=== PATIENT | male | born 1970 | race Caucasian/White ===

== ENCOUNTER 2016-07-06 12:25 | Emergency (ER) | payer OTHER ==
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
[2016-07-06 15:06] VITALS: BP 145/101
== END 2016-07-06 13:40 | disposition home or self-care (01) ==
LOC: JD.ED 12:25
DX: T20.40XA Corrosion of unspecified degree of head, face, and neck, unspecified site, initial encounter (principal); E78.00 Pure hypercholesterolemia, unspecified; I10 Essential (primary) hypertension; F41.9 Anxiety disorder, unspecified; E11.9 Type 2 diabetes mellitus without complications; F17.210 Nicotine dependence, cigarettes, uncomplicated; Z79.899 Other long term (current) drug therapy
CPT/HCPCS: 99282; 99283

== ENCOUNTER 2017-09-22 16:58 | Emergency (ER) | payer OTHER ==
[2017-09-22 17:09] VITALS: BP 157/86
[2017-09-22] MEDS ORDERED: Sodium Chloride 0.9% 1,000 ML IV SCH ×2 (17:15→18:30)
--- NOTE | 2017-09-22 17:15 | EDM.PDOC ---
<Zeeshan Roberts - Last Filed: 09/22/17 20:31> ED HPI GENERAL MEDICAL PROBLEM - General Chief Complaint: Diabetic Complaint Stated Complaint: 474 BLOOD SUGAR LEVEL Time Seen by Provider: 09/22/17 17:10 - Related Data Allergies Allergy/AdvReac Type Severity Reaction Status Date / Time No Known Allergies Allergy Verified 10/30/15 17:43 Home Meds: Home Meds metFORMIN HCl [Metformin HCl] 1,000 mg PO BID 06/15/15 [History] Escitalopram [Lexapro] 20 mg PO DAILY 10/30/15 [History] Insulin Glargine,Hum.Rec.Anlog [Toujeo Solostar] 20 unit INJECT DAILY 09/22/17 [ History] Insulin Lispro [Humalog] 0 unit INJECT ASDIRECTED 09/22/17 [History] Course - Vital Signs Last Recorded V/S: Last Vital Signs Temp 37.0 C 09/22/17 17:08 Pulse 96 09/22/17 17:08 Resp 20 09/22/17 17:08 BP 157/86 H 09/22/17 17:08 Pulse Ox 99 09/22/17 17:08 - Orders/Labs/Meds Labs: Laboratory Tests 09/22/17 09/22/17 09/22/17 Range/Units 17:10 17:10 17:10 WBC 11.17 H (4.23-9.07) K/mm3 RBC 5.12 (4.63-6.08) M/mm3 Hgb 15.2 (13.7-17.5) gm/L Hct 43.9 (40.1-51.0) % MCV 85.7 (79.0-92.2) fl MCH 29.7 (25.7-32.2) pg MCHC 34.6 (32.2-35.5) g/dl RDW Std Deviation 40.0 (35.1-43.9) fL Plt Count 262 (163-337) K/mm3 MPV 9.8 (9.4-12.3) fl Neutrophils % (Manual) 53 (40-60) % Band Neutrophils % 0 (0-10) % Lymphocytes % (Manual) 40 (20-40) % Atypical Lymphs % 0 % Monocytes % (Manual) 4 (2-10) % Eosinophils % (Manual) 3 (0.8-7.0) % Basophils % (Manual) 0 L (0.2-1.2) Platelet Estimate Adequate Plt Morphology Comment Normal RBC Morph Comment Normal Sodium 132 L (136-145) mEq/L Potassium 3.8 (3.5-5.1) mEq/L Chloride 96 L (98-107) mEq/L Carbon Dioxide 25 (21-32) mEq/L Anion Gap 14.8 (5-15) BUN 20 H (7-18) mg/dL Creatinine 1.1 (0.7-1.3) mg/dL Est Cr Clr Drug Dosing 98.60 mL/min Estimated GFR (MDRD) > 60 (>60) mL/min BUN/Creatinine Ratio 18.2 H (14-18) Glucose 498 H (74-106) mg/dL POC Glucose (70-105) mg/dL Hemoglobin A1c (4.50-6.20) % Serum Osmolality 308 H (280-300) mosm/kg Lactic Acid Calcium 8.4 L (8.5-10.1) mg/dL Magnesium (1.8-2.4) mg/dl Total Bilirubin 0.2 (0.2-1.0) mg/dL AST 12 L (15-37) U/L ALT 33 (16-63) U/L Alkaline Phosphatase 187 H (46-116) U/L Troponin I < 0.017 (0.00-0.056) ng/mL C-Reactive Protein < 0.2 (<1.0) mg/dL Total Protein 6.8 (6.4-8.2) g/dl Albumin 3.4 (3.4-5.0) g/dl Globulin 3.4 gm/dL Albumin/Globulin Ratio 1.0 (1-2) Urine Color (Yellow) Urine Appearance (Clear) Urine pH (5.0-8.0) Ur Specific [place] (1.005-1.030) Urine Protein (Negative) Urine Glucose (UA) (Negative) Urine Ketones (Negative) Urine Occult Blood (Negative) Urine Nitrite (Negative) Urine Bilirubin (Negative) Urine Urobilinogen (0.2-1.0) Ur Leukocyte Esterase (Negative) Urine RBC (0-5) /hpf Urine WBC (0-5) /hpf Ur Epithelial Cells (0-5) /hpf Urine Bacteria (FEW) /hpf Urine Mucus (FEW) /hpf Ketones (0.0-0.3) mM 09/22/17 09/22/17 09/22/17 Range/Units 17:10 17:10 17:10 WBC (4.23-9.07) K/mm3 RBC (4.63-6.08) M/mm3 Hgb (13.7-17.5) gm/L Hct (40.1-51.0) % MCV (79.0-92.2) fl MCH (25.7-32.2) pg MCHC (32.2-35.5) g/dl RDW Std Deviation (35.1-43.9) fL Plt Count (163-337) K/mm3 MPV (9.4-12.3) fl Neutrophils % (Manual) (40-60) % Band Neutrophils % (0-10) % Lymphocytes % (Manual) (20-40) % Atypical Lymphs % % Monocytes % (Manual) (2-10) % Eosinophils % (Manual) (0.8-7.0) % Basophils % (Manual) (0.2-1.2) Platelet Estimate Plt Morphology Comment RBC Morph Comment Sodium (136-145) mEq/L Potassium (3.5-5.1) mEq/L Chloride (98-107) mEq/L Carbon Dioxide (21-32) mEq/L Anion Gap (5-15) BUN (7-18) mg/dL Creatinine (0.7-1.3) mg/dL Est Cr Clr Drug Dosing mL/min Estimated GFR (MDRD) (>60) mL/min BUN/Creatinine Ratio (14-18) Glucose (74-106) mg/dL POC Glucose (70-105) mg/dL Hemoglobin A1c 10.50 H (4.50-6.20) % Serum Osmolality (280-300) mosm/kg Lactic Acid Calcium (8.5-10.1) mg/dL Magnesium 1.8 (1.8-2.4) mg/dl Total Bilirubin (0.2-1.0) mg/dL AST (15-37) U/L ALT (16-63) U/L Alkaline Phosphatase (46-116) U/L Troponin I (0.00-0.056) ng/mL C-Reactive Protein (<1.0) mg/dL Total Protein (6.4-8.2) g/dl Albumin (3.4-5.0) g/dl Globulin gm/dL Albumin/Globulin Ratio (1-2) Urine Color (Yellow) Urine Appearance (Clear) Urine pH (5.0-8.0) Ur Specific [place] (1.005-1.030) Urine Protein (Negative) Urine Glucose (UA) (Negative) Urine Ketones (Negative) Urine Occult Blood (Negative) Urine Nitrite (Negative) Urine Bilirubin (Negative) Urine Urobilinogen (0.2-1.0) Ur Leukocyte Esterase (Negative) Urine RBC (0-5) /hpf Urine WBC (0-5) /hpf Ur Epithelial Cells (0-5) /hpf Urine Bacteria (FEW) /hpf Urine Mucus (FEW) /hpf Ketones 0.22 (0.0-0.3) mM 09/22/17 09/22/17 09/22/17 Range/Units 17:40 19:43 19:46 WBC (4.23-9.07) K/mm3 RBC (4.63-6.08) M/mm3 Hgb (13.7-17.5) gm/L Hct (40.1-51.0) % MCV (79.0-92.2) fl MCH (25.7-32.2) pg MCHC (32.2-35.5) g/dl RDW Std Deviation (35.1-43.9) fL Plt Count (163-337) K/mm3 MPV (9.4-12.3) fl Neutrophils % (Manual) (40-60) % Band Neutrophils % (0-10) % Lymphocytes % (Manual) (20-40) % Atypical Lymphs % % Monocytes % (Manual) (2-10) % Eosinophils % (Manual) (0.8-7.0) % Basophils % (Manual) (0.2-1.2) Platelet Estimate Plt Morphology Comment RBC Morph Comment Sodium (136-145) mEq/L Potassium (3.5-5.1) mEq/L Chloride (98-107) mEq/L Carbon Dioxide (21-32) mEq/L Anion Gap (5-15) BUN (7-18) mg/dL Creatinine (0.7-1.3) mg/dL Est Cr Clr Drug Dosing mL/min Estimated GFR (MDRD) (>60) mL/min BUN/Creatinine Ratio (14-18) Glucose (74-106) mg/dL POC Glucose 88 (70-105) mg/dL Hemoglobin A1c (4.50-6.20) % Serum Osmolality (280-300) mosm/kg Lactic Acid TNP Calcium (8.5-10.1) mg/dL Magnesium (1.8-2.4) mg/dl Total Bilirubin (0.2-1.0) mg/dL AST (15-37) U/L ALT (16-63) U/L Alkaline Phosphatase (46-116) U/L Troponin I (0.00-0.056) ng/mL C-Reactive Protein (<1.0) mg/dL Total Protein (6.4-8.2) g/dl Albumin (3.4-5.0) g/dl Globulin gm/dL Albumin/Globulin Ratio (1-2) Urine Color Yellow (Yellow) Urine Appearance Clear (Clear) Urine pH 6.0 (5.0-8.0) Ur Specific [place] 1.025 (1.005-1.030) Urine Protein Negative (Negative) Urine Glucose (UA) 2+ H (Negative) Urine Ketones Negative (Negative) Urine Occult Blood Trace-lysed H (Negative) Urine Nitrite Negative (Negative) Urine Bilirubin Negative (Negative) Urine Urobilinogen 0.2 (0.2-1.0) Ur Leukocyte Esterase Negative (Negative) Urine RBC 0-5 (0-5) /hpf Urine WBC 0-5 (0-5) /hpf Ur Epithelial Cells 0-5 (0-5) /hpf Urine Bacteria Rare (FEW) /hpf Urine Mucus Not seen (FEW) /hpf Ketones (0.0-0.3) mM 09/22/17 09/22/17 Range/Units 19:48 20:21 WBC (4.23-9.07) K/mm3 RBC (4.63-6.08) M/mm3 Hgb (13.7-17.5) gm/L Hct (40.1-51.0) % MCV (79.0-92.2) fl MCH (25.7-32.2) pg MCHC (32.2-35.5) g/dl RDW Std Deviation (35.1-43.9) fL Plt Count (163-337) K/mm3 MPV (9.4-12.3) fl Neutrophils % (Manual) (40-60) % Band Neutrophils % (0-10) % Lymphocytes % (Manual) (20-40) % Atypical Lymphs % % Monocytes % (Manual) (2-10) % Eosinophils % (Manual) (0.8-7.0) % Basophils % (Manual) (0.2-1.2) Platelet Estimate Plt Morphology Comment RBC Morph Comment Sodium (136-145) mEq/L Potassium (3.5-5.1) mEq/L Chloride (98-107) mEq/L Carbon Dioxide (21-32) mEq/L Anion Gap (5-15) BUN (7-18) mg/dL Creatinine (0.7-1.3) mg/dL Est Cr Clr Drug Dosing mL/min Estimated GFR (MDRD) (>60) mL/min BUN/Creatinine Ratio (14-18) Glucose 117 H (74-106) mg/dL POC Glucose 129 H (70-105) mg/dL Hemoglobin A1c (4.50-6.20) % Serum Osmolality (280-300) mosm/kg Lactic Acid Calcium (8.5-10.1) mg/dL Magnesium (1.8-2.4) mg/dl Total Bilirubin (0.2-1.0) mg/dL AST (15-37) U/L ALT (16-63) U/L Alkaline Phosphatase (46-116) U/L Troponin I (0.00-0.056) ng/mL C-Reactive Protein (<1.0) mg/dL Total Protein (6.4-8.2) g/dl Albumin (3.4-5.0) g/dl Globulin gm/dL Albumin/Globulin Ratio (1-2) Urine Color (Yellow) Urine Appearance (Clear) Urine pH (5.0-8.0) Ur Specific [place] (1.005-1.030) Urine Protein (Negative) Urine Glucose (UA) (Negative) Urine Ketones (Negative) Urine Occult Blood (Negative) Urine Nitrite (Negative) Urine Bilirubin (Negative) Urine Urobilinogen (0.2-1.0) Ur Leukocyte Esterase (Negative) Urine RBC (0-5) /hpf Urine WBC (0-5) /hpf Ur Epithelial Cells (0-5) /hpf Urine Bacteria (FEW) /hpf Urine Mucus (FEW) /hpf Ketones (0.0-0.3) mM Meds: Medications Discontinued Medications Generic Name Dose Route Start Last Admin Trade Name [place] PRN Reason Stop Dose Admin Dextrose/Water Confirm 09/22/17 19:51 Dextrose 50% In Water Administered 09/22/17 19:52 Dose 50 ml .ROUTE .STK-MED ONE Sodium Chloride 1,000 mls @ 999 mls/hr 09/22/17 17:15 09/22/17 17:27 Normal Saline IV 999 mls/hr ASDIRECTED TAMEKA Administration Sodium Chloride 1,000 mls @ 500 mls/hr 09/22/17 18:30 09/22/17 18:38 Normal Saline IV 500 mls/hr ASDIRECTED TAMEKA Administration Insulin Human NPH 10 unit 09/23/17 18:24 Humulin N SUBCUT 09/23/17 18:25 ONETIME ONE Insulin Human Regular 10 unit 09/22/17 18:15 09/22/17 18:38 Humulin R IV 09/22/17 18:16 10 unit ONETIME ONE Administration - Re-Assessments/Exams Free Text/Narrative Re-Assessment/Exam: 09/22/17 20:34 Have assumed care from Dr Valiente at change of shift. I agree with his hx and exam as documented. repeat glucose after 10 units insulin IV over an hr ago was 88. We had him eat and than rechecked glucose, now 129. He feels much better. Discharge instr. as documented. Departure - Departure Disposition: Home, Self-Care 01 Clinical Impression: Hyperglycemia Uncontrolled type 2 diabetes mellitus Qualifiers: Diabetes mellitus long-term insulin use: with long-term use Diabetes mellitus complication status: with other specified complication Qualified Code(s): E11.69 - Type 2 diabetes mellitus with other specified complication; E11.65 - Type 2 diabetes mellitus with hyperglycemia; Z79.4 - longterm (current) use of insulin - Discharge Information Instructions: Type 2 Diabetes Mellitus, Diagnosis, Adult, Hyperglycemia, Easy- to-Read Referrals: Sharee Gregory, CHARGE ENTRY SPECIALIST [Primary Care Provider] - Forms: ED Department Discharge Additional Instructions: Evaluation in the emergency room today in regards to feeling ill secondary to uncontrolled type 2 diabetes. Sugars are running exceptionally high today and they have been running high per your history for over a week. This is produced some degree of dehydration but not as bad as I had initially anticipated. Blood sugar today was 500. You're therefore given a liter and a half of intravenous fluids while in the ED. You were given 10 units of insulin intravenously and a longer acting insulin called NPH subcutaneously. Overall we need to increase your Toujeo dose to 30 units once daily since your glycosylated protein is 10.5. You should take this dosage once daily every morning. You should see an improvement in your blood sugars over the next 3-5 days follow-up with your primary care provider on Saturday as planned. Copies of your labs will be provided to you to give to her. <Darrell Valiente - Last Filed: 09/25/17 13:24> ED HPI GENERAL MEDICAL PROBLEM - General Source of Information: Reports: Patient, Family History Limitations: Reports: No Limitations - History of Present Illness INITIAL COMMENTS - FREE TEXT/NARRATIVE: 47-year-old male presents the ED with uncontrolled type 2 diabetes. Sugars of been running high for several days and today they were as high as 575. He is supposed to be following a diabetic diet. He is supposed to be taking metformin. So also using Humalog intermittently rapid acting or regular insulin and Toujeo once daily. Complains of diffuse headache blurred vision shortness of breath weakness upper and left sided abdominal pain. Nausea but no vomiting. Increased urinary frequency and severe polydipsia. Patient apparently has been type II diabetic 4-5 years. Onset: Gradual, Unknown/Unsure (There is been running high for at least 5 days if not longer.) Duration: Day(s):, Getting Worse Location: Reports: Generalized (Generalized sense of illness with headache dry mouth urinary increased urinary frequency elevated blood sugars) Quality: Reports: Other (Diffuse headache) Severity: Moderate (discomfort with throbbing pain) Improves with: Reports: None Worsens with: Reports: None Context: Reports: Other (Type II diabetic uncontrolled.). Denies: Activity, Exercise, Lifting, Sick Contact, Trauma Associated Symptoms: Reports: Cough (Smoker's cough not very often productive of any sputum), Headaches, Malaise, Nausea/Vomiting (On exertion), Shortness of Breath, Weakness ( nausea without vomiting generalized weakness. ). 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 Her liters blood sugars 575.) Headache Pain Score (Numeric/FACES): 8 Past Medical History Cardiovascular History: Reports: High Cholesterol, Hypertension Musculoskeletal History: Reports: Back Pain, Chronic Psychiatric History: Reports: Anxiety Endocrine/Metabolic History: Reports: Diabetes, Type II (4-5 years.) Social & Family History - Tobacco Use Smoking Status *Q: Current Every Day Smoker Tobacco Use Within Last Twelve Months: Cigarettes (Pack per day) - Caffeine Use Caffeine Use: Reports: Coffee, Soda, Tea ED ROS GENERAL - Review of Systems Review Of Systems: See Below Constitutional: Reports: Fever, Malaise (Feels warm to palpation.), Weakness, Fatigue, Decreased Appetite, Other (He's not sure if he's lost weight.). Denies : Chills HEENT: Reports: Other (Mouth and tongue are extremely dry.) Respiratory: Reports: Shortness of Breath, Cough. Denies: Wheezing, Pleuritic Chest Pain (On minimal exertion) Cardiovascular: Reports: Blood Pressure Problem, Dyspnea on Exertion, Lightheadedness, Palpitations (Sometimes). Denies: Chest Pain (Nonproductive. Of note patient is a smoker a pack per day.), Claudication, Edema, Orthopnea ( Mild hypertension) Endocrine: Reports: Fatigue, High Glucose GI/Abdominal: Reports: Abdominal Pain (Left karly-abdominal discomfort.), Decreased Appetite, Nausea, Other (2 bowel movements today.). Denies: Constipation, Diarrhea : Reports: Frequency (Marked polyuria.) Musculoskeletal: Reports: Muscle Pain Skin: Reports: No Symptoms Neurological: Reports: Confusion, Dizziness, Headache, Difficulty Walking, Weakness. Denies: Numbness, Tingling, Tremors (Due to being weak.), Trouble Speaking, Change in Speech, Gait Disturbance Psychiatric: Reports: Anxiety Hematologic/Lymphatic: Reports: No Symptoms Immunologic: Reports: No Symptoms ED EXAM GENERAL NO PERIP PULSE - Physical Exam Exam: See Below Exam Limited By: No Limitations General Appearance: Alert, WD/WN, Anxious, Mild Distress, Other (Very red in the bases of the sunburn. He does feel warm to palpation but the rest of his body does not feel hot.) Eye Exam: Bilateral Eye: Normal Inspection Throat/Mouth: Other (Tongue is extremely dry and coated. No oropharyngeal infection although it is mildly erythematous I believe from cigarette smoking.) Head: Atraumatic, Normocephalic Neck: Normal Inspection, Supple, Non-Tender, Full Range of Motion. No: Carotid Bruit, Lymphadenopathy (L), Lymphadenopathy (R) Respiratory/Chest: Lungs Clear, Normal Breath Sounds (Mild tachypnea at rest 20- 22/m.), No Accessory Muscle Use, Chest Non-Tender, Respiratory Distress. No: Rales, Rhonchi, Wheezing Cardiovascular: Normal Peripheral Pulses, Regular Rate, Rhythm, No Edema, No Gallop, No Murmur, No Rub GI/Abdominal: Normal Bowel Sounds, No Mass, Pelvis Stable, Tender (Tender to palpation left upper quadrant left mid abdomen. No palpable masses.). No: No Abnormal Bruit, Guarding ( No guarding or rebound tenderness.), Rigid, Rebound Back Exam: Normal Inspection, Full Range of Motion. No: CVA Tenderness (L), CVA Tenderness (R) Extremities: Normal Inspection, Normal Range of Motion, Non-Tender, No Pedal Edema Neurological: Alert, Oriented, CN II-XII Intact, Normal Cognition Psychiatric: Normal Affect, Normal Mood Skin Exam: Warm, Dry, Intact, No Rash, Other (Face is flushed and erythematous like a sunburn.) EKG INTERPRETATION EKG Date: 09/22/17 Time: 17:27 Rhythm: NSR Rate (Beats/Min): 88 Williams: Normal P-Wave: Present QRS: Wide (incomplete right bundle branch block) ST-T: Normal QT: Normal EKG Interpretation Comments: Abnormal ECG. Course - Orders/Labs/Meds Labs: Laboratory Tests 09/22/17 09/22/17 09/22/17 Range/Units 17:10 17:10 17:10 WBC 11.17 H (4.23-9.07) K/mm3 RBC 5.12 (4.63-6.08) M/mm3 Hgb 15.2 (13.7-17.5) gm/L Hct 43.9 (40.1-51.0) % MCV 85.7 (79.0-92.2) fl MCH 29.7 (25.7-32.2) pg MCHC 34.6 (32.2-35.5) g/dl RDW Std Deviation 40.0 (35.1-43.9) fL Plt Count 262 (163-337) K/mm3 MPV 9.8 (9.4-12.3) fl Neutrophils % (Manual) 53 (40-60) % Band Neutrophils % 0 (0-10) % Lymphocytes % (Manual) 40 (20-40) % Atypical Lymphs % 0 % Monocytes % (Manual) 4 (2-10) % Eosinophils % (Manual) 3 (0.8-7.0) % Basophils % (Manual) 0 L (0.2-1.2) Platelet Estimate Adequate Plt Morphology Comment Normal RBC Morph Comment Normal Sodium 132 L (136-145) mEq/L Potassium 3.8 (3.5-5.1) mEq/L Chloride 96 L (98-107) mEq/L Carbon Dioxide 25 (21-32) mEq/L Anion Gap 14.8 (5-15) BUN 20 H (7-18) mg/dL Creatinine 1.1 (0.7-1.3) mg/dL Est Cr Clr Drug Dosing 98.60 mL/min Estimated GFR (MDRD) > 60 (>60) mL/min BUN/Creatinine Ratio 18.2 H (14-18) Glucose 498 H (74-106) mg/dL POC Glucose (70-105) mg/dL Hemoglobin A1c (4.50-6.20) % Serum Osmolality 308 H (280-300) mosm/kg Lactic Acid Calcium 8.4 L (8.5-10.1) mg/dL Magnesium (1.8-2.4) mg/dl Total Bilirubin 0.2 (0.2-1.0) mg/dL AST 12 L (15-37) U/L ALT 33 (16-63) U/L Alkaline Phosphatase 187 H (46-116) U/L Troponin I < 0.017 (0.00-0.056) ng/mL C-Reactive Protein < 0.2 (<1.0) mg/dL Total Protein 6.8 (6.4-8.2) g/dl Albumin 3.4 (3.4-5.0) g/dl Globulin 3.4 gm/dL Albumin/Globulin Ratio 1.0 (1-2) Urine Color (Yellow) Urine Appearance (Clear) Urine pH (5.0-8.0) Ur Specific [place] (1.005-1.030) Urine Protein (Negative) Urine Glucose (UA) (Negative) Urine Ketones (Negative) Urine Occult Blood (Negative) Urine Nitrite (Negative) Urine Bilirubin (Negative) Urine Urobilinogen (0.2-1.0) Ur Leukocyte Esterase (Negative) Urine RBC (0-5) /hpf Urine WBC (0-5) /hpf Ur Epithelial Cells (0-5) /hpf Urine Bacteria (FEW) /hpf Urine Mucus (FEW) /hpf Ketones (0.0-0.3) mM 09/22/17 09/22/17 09/22/17 Range/Units 17:10 17:10 17:10 WBC (4.23-9.07) K/mm3 RBC (4.63-6.08) M/mm3 Hgb (13.7-17.5) gm/L Hct (40.1-51.0) % MCV (79.0-92.2) fl MCH (25.7-32.2) pg MCHC (32.2-35.5) g/dl RDW Std Deviation (35.1-43.9) fL Plt Count (163-337) K/mm3 MPV (9.4-12.3) fl Neutrophils % (Manual) (40-60) % Band Neutrophils % (0-10) % Lymphocytes % (Manual) (20-40) % Atypical Lymphs % % Monocytes % (Manual) (2-10) % Eosinophils % (Manual) (0.8-7.0) % Basophils % (Manual) (0.2-1.2) Platelet Estimate Plt Morphology Comment RBC Morph Comment Sodium (136-145) mEq/L Potassium (3.5-5.1) mEq/L Chloride (98-107) mEq/L Carbon Dioxide (21-32) mEq/L Anion Gap (5-15) BUN (7-18) mg/dL Creatinine (0.7-1.3) mg/dL Est Cr Clr Drug Dosing mL/min Estimated GFR (MDRD) (>60) mL/min BUN/Creatinine Ratio (14-18) Glucose (74-106) mg/dL POC Glucose (70-105) mg/dL Hemoglobin A1c 10.50 H (4.50-6.20) % Serum Osmolality (280-300) mosm/kg Lactic Acid Calcium (8.5-10.1) mg/dL Magnesium 1.8 (1.8-2.4) mg/dl Total Bilirubin (0.2-1.0) mg/dL AST (15-37) U/L ALT (16-63) U/L Alkaline Phosphatase (46-116) U/L Troponin I (0.00-0.056) ng/mL C-Reactive Protein (<1.0) mg/dL Total Protein (6.4-8.2) g/dl Albumin (3.4-5.0) g/dl Globulin gm/dL Albumin/Globulin Ratio (1-2) Urine Color (Yellow) Urine Appearance (Clear) Urine pH (5.0-8.0) Ur Specific [place] (1.005-1.030) Urine Protein (Negative) Urine Glucose (UA) (Negative) Urine Ketones (Negative) Urine Occult Blood (Negative) Urine Nitrite (Negative) Urine Bilirubin (Negative) Urine Urobilinogen (0.2-1.0) Ur Leukocyte Esterase (Negative) Urine RBC (0-5) /hpf Urine WBC (0-5) /hpf Ur Epithelial Cells (0-5) /hpf Urine Bacteria (FEW) /hpf Urine Mucus (FEW) /hpf Ketones 0.22 (0.0-0.3) mM 09/22/17 09/22/17 09/22/17 Range/Units 17:40 19:43 19:46 WBC (4.23-9.07) K/mm3 RBC (4.63-6.08) M/mm3 Hgb (13.7-17.5) gm/L Hct (40.1-51.0) % MCV (79.0-92.2) fl MCH (25.7-32.2) pg MCHC (32.2-35.5) g/dl RDW Std Deviation (35.1-43.9) fL Plt Count (163-337) K/mm3 MPV (9.4-12.3) fl Neutrophils % (Manual) (40-60) % Band Neutrophils % (0-10) % Lymphocytes % (Manual) (20-40) % Atypical Lymphs % % Monocytes % (Manual) (2-10) % Eosinophils % (Manual) (0.8-7.0) % Basophils % (Manual) (0.2-1.2) Platelet Estimate Plt Morphology Comment RBC Morph Comment Sodium (136-145) mEq/L Potassium (3.5-5.1) mEq/L Chloride (98-107) mEq/L Carbon Dioxide (21-32) mEq/L Anion Gap (5-15) BUN (7-18) mg/dL Creatinine (0.7-1.3) mg/dL Est Cr Clr Drug Dosing mL/min Estimated GFR (MDRD) (>60) mL/min BUN/Creatinine Ratio (14-18) Glucose (74-106) mg/dL POC Glucose 88 (70-105) mg/dL Hemoglobin A1c (4.50-6.20) % Serum Osmolality (280-300) mosm/kg Lactic Acid TNP Calcium (8.5-10.1) mg/dL Magnesium (1.8-2.4) mg/dl Total Bilirubin (0.2-1.0) mg/dL AST (15-37) U/L ALT (16-63) U/L Alkaline Phosphatase (46-116) U/L Troponin I (0.00-0.056) ng/mL C-Reactive Protein (<1.0) mg/dL Total Protein (6.4-8.2) g/dl Albumin (3.4-5.0) g/dl Globulin gm/dL Albumin/Globulin Ratio (1-2) Urine Color Yellow (Yellow) Urine Appearance Clear (Clear) Urine pH 6.0 (5.0-8.0) Ur Specific [place] 1.025 (1.005-1.030) Urine Protein Negative (Negative) Urine Glucose (UA) 2+ H (Negative) Urine Ketones Negative (Negative) Urine Occult Blood Trace-lysed H (Negative) Urine Nitrite Negative (Negative) Urine Bilirubin Negative (Negative) Urine Urobilinogen 0.2 (0.2-1.0) Ur Leukocyte Esterase Negative (Negative) Urine RBC 0-5 (0-5) /hpf Urine WBC 0-5 (0-5) /hpf Ur Epithelial Cells 0-5 (0-5) /hpf Urine Bacteria Rare (FEW) /hpf Urine Mucus Not seen (FEW) /hpf Ketones (0.0-0.3) mM 09/22/17 09/22/17 Range/Units 19:48 20:21 WBC (4.23-9.07) K/mm3 RBC (4.63-6.08) M/mm3 Hgb (13.7-17.5) gm/L Hct (40.1-51.0) % MCV (79.0-92.2) fl MCH (25.7-32.2) pg MCHC (32.2-35.5) g/dl RDW Std Deviation (35.1-43.9) fL Plt Count (163-337) K/mm3 MPV (9.4-12.3) fl Neutrophils % (Manual) (40-60) % Band Neutrophils % (0-10) % Lymphocytes % (Manual) (20-40) % Atypical Lymphs % % Monocytes % (Manual) (2-10) % Eosinophils % (Manual) (0.8-7.0) % Basophils % (Manual) (0.2-1.2) Platelet Estimate Plt Morphology Comment RBC Morph Comment Sodium (136-145) mEq/L Potassium (3.5-5.1) mEq/L Chloride (98-107) mEq/L Carbon Dioxide (21-32) mEq/L Anion Gap (5-15) BUN (7-18) mg/dL Creatinine (0.7-1.3) mg/dL Est Cr Clr Drug Dosing mL/min Estimated GFR (MDRD) (>60) mL/min BUN/Creatinine Ratio (14-18) Glucose 117 H (74-106) mg/dL POC Glucose 129 H (70-105) mg/dL Hemoglobin A1c (4.50-6.20) % Serum Osmolality (280-300) mosm/kg Lactic Acid Calcium (8.5-10.1) mg/dL Magnesium (1.8-2.4) mg/dl Total Bilirubin (0.2-1.0) mg/dL AST (15-37) U/L ALT (16-63) U/L Alkaline Phosphatase (46-116) U/L Troponin I (0.00-0.056) ng/mL C-Reactive Protein (<1.0) mg/dL Total Protein (6.4-8.2) g/dl Albumin (3.4-5.0) g/dl Globulin gm/dL Albumin/Globulin Ratio (1-2) Urine Color (Yellow) Urine Appearance (Clear) Urine pH (5.0-8.0) Ur Specific [place] (1.005-1.030) Urine Protein (Negative) Urine Glucose (UA) (Negative) Urine Ketones (Negative) Urine Occult Blood (Negative) Urine Nitrite (Negative) Urine Bilirubin (Negative) Urine Urobilinogen (0.2-1.0) Ur Leukocyte Esterase (Negative) Urine RBC (0-5) /hpf Urine WBC (0-5) /hpf Ur Epithelial Cells (0-5) /hpf Urine Bacteria (FEW) /hpf Urine Mucus (FEW) /hpf Ketones (0.0-0.3) mM Meds: Medications Discontinued Medications Generic Name Dose Route Start Last Admin Trade Name Amanq PRN Reason Stop Dose Admin Dextrose/Water Confirm 09/22/17 19:51 Dextrose 50% In Water Administered 09/22/17 19:52 Dose 50 ml .ROUTE .STK-MED ONE Sodium Chloride 1,000 mls @ 999 mls/hr 09/22/17 17:15 09/22/17 17:27 Normal Saline IV 999 mls/hr ASDIRECTED TAMEKA Administration Sodium Chloride 1,000 mls @ 500 mls/hr 09/22/17 18:30 09/22/17 18:38 Normal Saline IV 500 mls/hr ASDIRECTED TAMEKA Administration Insulin Human NPH 10 unit 09/23/17 18:24 Humulin N SUBCUT 09/23/17 18:25 ONETIME ONE Insulin Human Regular 10 unit 09/22/17 18:15 09/22/17 18:38 Humulin R IV 09/22/17 18:16 10 unit ONETIME ONE Administration - Radiology Interpretation Free Text/Narrative:: 47-year-old male presents to the ED essentially with uncontrolled type 2 diabetes for probably greater than 5 days. Blood sugars of been running high on his monitor which is greater than 500. Sugar today earlier was 474. He took 5 units of Humalog insulin and then his sugar an hour later was 575. Feeling weak and lightheaded dizzy and headachy generalized myalgia has polyuria and poly- .dipsia. He does has some diffuse left-sided karly-abdominal discomfort on examination but no peritoneal signs. I will have blood cultures done 2. IV will be normal saline at open. Will see how his sugars are not suspect he'll need an insulin infusion for a period of time. He appears to be significantly volume depleted. - Re-Assessments/Exams Free Text/Narrative Re-Assessment/Exam: 09/22/17 18:14 Labs are back. Total white count is 11.17 with 53% neutrophils and no bands reported. Hemoglobin is 15.2 with hematocrit of 43.9. Sodium is slightly low at 132. Potassium normal 3.8. Chloride 96 with a bicarbonate of 25. Anion gap is 14.8. BUN is 20 with a creatinine of 1.1. Glucose is elevated at 498. Hemoglobin A1c is 10.50. Serum osmolality is pending. Calcium is 8.4. Magnesium low normal at 1.8. Bilirubin normal at 0.2. Alk phosphatase mildly elevated at 187. Reason for this is unclear. Troponin I is less than 0.017. C- reactive protein is less than 0.2. Therefore there are no signs of infection. She is currently looking much improved after a liter of IV fluid. I will start a second liter of IV fluid as well. Plan will be given to give him 10 units of regular insulin Humalog IV bolus and 10 units of NPH insulin subcutaneously. Sugar should be checked in an hour. He needs an increase in his Toujeo doseage . He may be noncompliant with the medication however therefore I have some reservations. I will make appropriate adjustments and he is going to follow-up with his care provider in 5 days time. Departure - Departure Time of Disposition: 22:25 Condition: Fair - Discharge Information *PRESCRIPTION DRUG MONITORING PROGRAM REVIEWED*: Not Applicable *COPY OF PRESCRIPTION DRUG MONITORING REPORT IN PATIENT STANISLAV: Not Applicable
[2017-09-22] MEDS ORDERED: Insulin Regular, Human 100 Units/ML 3 ML Vial IV ONE (18:15)
[2017-09-22] MEDS ORDERED: 50% Dextrose in Water 50 ML Syringe ONE (19:51)
[2017-09-23] MEDS ORDERED: Insulin Isophane NPH, Human 100 Units/ML 10 ML Vial SUBCUT ONE (18:24)
== END 2017-09-22 21:00 | disposition home or self-care (01) ==
LOC: JD.ED 16:58
DX: E11.65 Type 2 diabetes mellitus with hyperglycemia (principal); I10 Essential (primary) hypertension; Z79.4 Long term (current) use of insulin; Z79.84 Long term (current) use of oral hypoglycemic drugs; F17.210 Nicotine dependence, cigarettes, uncomplicated
CPT/HCPCS: 36415; 80053; 81001; 82009; 82947; 82962; 83036; 83735; 83930; 84484; 85007; 85027; 86140; 87040; 93005; 96361; 96374; 99285; J1815; J7040; 93010; 99284-25

== ENCOUNTER 2018-05-06 13:07 | Emergency (ER) | payer BC ==
[2018-05-06] MEDS ORDERED: Lactated Ringers 1,000 ML IV ONE (14:19)
--- NOTE | 2018-05-06 14:22 | EDM.PDOC ---
ED HPI GENERAL MEDICAL PROBLEM - General Chief Complaint: Diabetic Complaint Stated Complaint: NOT FEELING GOOD AFTER TAKING NEW INSULANT Time Seen by Provider: 05/06/18 13:58 Source of Information: Reports: Patient, Family (), RN Notes Reviewed History Limitations: Reports: Physical Impairment (Fidgety - constantly in motion) - History of Present Illness INITIAL COMMENTS - FREE TEXT/NARRATIVE: The patient states that he has type 2 diabetes mellitus, on Toujeo for the past 3-4 years. He states that he was also previously on Humalog, but has not taken any for the past 3-4 months. He states that he usually checks his blood sugar 3 times a day, with a typical range of 380 to 600. He states that, due to a change in insurance, he was prescribed NovoLog, that he started taking this past 05/03/2018. He states that he is supposed to take 11 units of NovoLog 3 to 5 times a day, depending on his diet. He states that in fact, he is taking 11 units 3 times a day. Since starting NovoLog , he states that his blood sugars have been in the high 200s. The patient now presents, stating that he is chronically nauseated and constipated. He has both polydipsia and polyuria. No recent fever, chills, cough , chest pain, palpitations, dyspnea, vomiting, diarrhea, dysuria, flank pain, or rashes. The patient acknowledges that he eats a lot of candy and junk food, and drinks approximately 10 Diet Pepsi's per day. The patient's PCP is Sharee Gregory. The patient states that his diabetes is managed by a diabetic nurse in the clinic, whose name he does not recall. Lower Back Pain Score (Numeric/FACES): 5 - Related Data Allergies Allergy/AdvReac Type Severity Reaction Status Date / Time No Known Allergies Allergy Verified 01/19/18 09:40 Home Meds: Home Meds metFORMIN HCl [Metformin HCl] 1,000 mg PO BID 06/15/15 [History] Escitalopram [Lexapro] 20 mg PO DAILY 10/30/15 [History] Insulin Glargine,Hum.Rec.Anlog [Toujeo Solostar] 35 unit INJECT DAILY 09/22/17 [ History] LORazepam 1 tab PO DAILY PRN 05/06/18 [History] traZODone HCl [Trazodone HCl] 1 tab PO DAILY 05/06/18 [History] Past Medical History HEENT History: Reports: Other (See Below) Other HEENT History: deviated nasal spetum. Cardiovascular History: Reports: High Cholesterol (untreated), Hypertension ( untreated) Musculoskeletal History: Reports: Back Pain, Chronic, Fracture Psychiatric History: Reports: Anxiety, Depression Endocrine/Metabolic History: Reports: Diabetes, Type II, Obesity/BMI 30+ - Infectious Disease History Infectious Disease History: Reports: Chicken Pox - Past Surgical History HEENT Surgical History: Reports: Oral Surgery (wisdom teeth extracted) Social & Family History - Tobacco Use Smoking Status *Q: Current Some Day Smoker Years of Tobacco use: 32 Packs/Tins Daily: 2 - Caffeine Use Caffeine Use: Reports: Coffee, Soda - Alcohol Use Alcohol Use History: Yes Alcohol Use Frequency: Rarely - Recreational Drug Use Recreational Drug Use: Yes Drug Use in Last 12 Months: No Recreational Drug Type: Reports: Marijuana/Hashish (last smoked in 2016) - Living Situation & Occupation Living situation: Reports: Single, with Significant Other (Fiance), with Family (3 kids) Occupation: Employed ([employer]) ED ROS GENERAL - Review of Systems Review Of Systems: ROS reveals no pertinent complaints other than HPI. ED EXAM GENERAL NO PERIP PULSE - Physical Exam Exam: See Below Exam Limited By: No Limitations General Appearance: Alert, WD/WN, No Apparent Distress, Other (Fidgety - constantly in motion) Eye Exam: Bilateral Eye: EOMI, Normal Inspection Ears: Normal External Exam, Hearing Grossly Normal Nose: Normal Inspection Throat/Mouth: Normal Inspection, Normal Lips, Normal Voice, No Airway Compromise Head: Atraumatic, Normocephalic Neck: Normal Inspection, Full Range of Motion Respiratory/Chest: No Respiratory Distress, Lungs Clear, Normal Breath Sounds, No Accessory Muscle Use Cardiovascular: Normal Peripheral Pulses, No Edema, No Gallop, No JVD, No Murmur , No Rub, Tachycardia (regular) GI/Abdominal: Normal Bowel Sounds, Soft, Non-Tender, No Organomegaly, No Distention, No Abnormal Bruit, No Mass, Other (Obese) (Male) Exam: Deferred Rectal (Males) Exam: Deferred Back Exam: Normal Inspection, Full Range of Motion. No: CVA Tenderness (L), CVA Tenderness (R) Extremities: Normal Inspection, Normal Range of Motion, No Pedal Edema, Normal Capillary Refill Neurological: Alert, Oriented, Normal Cognition, No Motor/Sensory Deficits Psychiatric: Other (Fidgety - constantly in motion) Skin Exam: Warm, Dry, Intact, Normal Color, No Rash Course - Vital Signs Last Recorded V/S: Last Vital Signs Temp 36.8 C 05/06/18 16:19 Pulse 82 05/06/18 16:19 Resp 20 05/06/18 16:19 BP 144/95 H 05/06/18 16:19 Pulse Ox 97 05/06/18 16:19 Orthostatic Blood Pressure [ 163/79 Standing] Orthostatic Blood Pressure [ 162/101 Sitting] Orthostatic Blood Pressure [ 144/95 Supine] - Orders/Labs/Meds Labs: Laboratory Tests 05/06/18 05/06/18 05/06/18 Range/Units 13:21 13:47 13:47 WBC 10.32 H (4.23-9.07) K/mm3 RBC 5.08 (4.63-6.08) M/mm3 Hgb 14.6 (13.7-17.5) gm/L Hct 43.9 (40.1-51.0) % MCV 86.4 (79.0-92.2) fl MCH 28.7 (25.7-32.2) pg MCHC 33.3 (32.2-35.5) g/dl RDW Std Deviation 40.8 (35.1-43.9) fL Plt Count 289 (163-337) K/mm3 MPV 9.9 (9.4-12.3) fl Neutrophils % (Manual) 75 H (40-60) % Band Neutrophils % 1 (0-10) % Lymphocytes % (Manual) 22 (20-40) % Atypical Lymphs % 0 % Monocytes % (Manual) 2 (2-10) % Eosinophils % (Manual) 0 L (0.8-7.0) % Basophils % (Manual) 0 L (0.2-1.2) Platelet Estimate Adequate RBC Morph Comment Normal Sodium 135 L (136-145) mEq/L Potassium 3.8 (3.5-5.1) mEq/L Chloride 101 (98-107) mEq/L Carbon Dioxide 24 (21-32) mEq/L Anion Gap 13.8 (5-15) BUN 17 (7-18) mg/dL Creatinine 1.0 (0.7-1.3) mg/dL Est Cr Clr Drug Dosing 108.46 mL/min Estimated GFR (MDRD) > 60 (>60) mL/min BUN/Creatinine Ratio 17.0 (14-18) Glucose 404 H (74-106) mg/dL POC Glucose 394 H (70-105) mg/dL Calcium 9.2 (8.5-10.1) mg/dL Magnesium 1.8 (1.8-2.4) mg/dl Total Bilirubin 0.5 (0.2-1.0) mg/dL AST 21 (15-37) U/L ALT 26 (16-63) U/L Alkaline Phosphatase 134 H (46-116) U/L Total Protein 7.0 (6.4-8.2) g/dl Albumin 3.6 (3.4-5.0) g/dl Globulin 3.4 gm/dL Albumin/Globulin Ratio 1.1 (1-2) Meds: Medications Discontinued Medications Generic Name Dose Route Start Last Admin Trade Name Freq PRN Reason Stop Dose Admin Lactated Ringer's 1,000 mls @ 999 mls/hr 05/06/18 14:19 05/06/18 14:52 Ringers, Lactated IV 05/06/18 15:19 999 mls/hr .BOLUS ONE Administration - Re-Assessments/Exams Free Text/Narrative Re-Assessment/Exam: 05/06/18 14:19 The patient reports not feeling well after starting NovoLog 3 days ago. While he states that his Accu-Cheks have been in the high 200s since starting NovoLog , they are ordinarily between 380-600, therefore, while there has been some improvement, the patient is essentially having a hypoglycemic reaction. For today's purposes, I have ordered orthostatics, a CBC, CMP, and magnesium level, to make sure that the patient has not suffered any significant fluid or electrolyte abnormalities, but, in the meantime, the patient will receive 1 L of LR. 05/06/18 16:37 Notified that the patient is anxious to leave. Orthostatics, obtained after the patient received 1 L of LR, are positive. The patient's blood glucose returned significantly elevated at 404. The remainder of his workup is unremarkable. He is not acidotic.I recommended to the patient that he receive additional IV fluid , until his orthostatics are corrected, however, the patient refused. I would like the patient to follow-up with his diabetic nurse, with the recommendation that the amount of short-acting insulin that he is currently receiving be decreased, as he does not seem to tolerate even modest decreases in his blood glucose. Departure - Departure Time of Disposition: 16:38 Disposition: Home, Self-Care 01 Condition: Fair Clinical Impression: Hyperglycemia due to type 2 diabetes mellitus, Orthostasis - Discharge Information *PRESCRIPTION DRUG MONITORING PROGRAM REVIEWED*: Not Applicable *COPY OF PRESCRIPTION DRUG MONITORING REPORT IN PATIENT STANISLAV: Not Applicable Instructions: Hyperglycemia, [id number] Referrals: Sharee Gregory NP [Primary Care Provider] - Forms: ED Department Discharge Additional Instructions: You were seen in the emergency room for feeling poorly, after NovoLog was added to your usual Toujeo. Workup in the ER included blood work and positional blood pressure checks. Your blood sugar returned elevated at 404, and your blood pressure dropped excessively between lying and standing, indicating that you are intravascularly depleted. You received 1 L of IV fluid in the ER, but refused additional IV fluid that was recommended. Based on your history, physical examination, and ER test, you are feeling poorly because your body does not tolerate even modest decreases in your chronically elevated blood sugar. We recommend that you discuss this with your diabetic nurse, to see if a decreased dose of NovoLog might help to decrease your symptoms. In the meantime, we strongly recommend that you adhere to a diabetic diet. Stay adequately hydrated. If any other problems, please do not hesitate to return to the ER.
[2018-05-06 16:20] VITALS: BP 144/95
== END 2018-05-06 16:50 | disposition home or self-care (01) ==
LOC: JD.ED 13:07
DX: E11.65 Type 2 diabetes mellitus with hyperglycemia (principal); I95.1 Orthostatic hypotension; I10 Essential (primary) hypertension; E66.9 Obesity, unspecified; F41.9 Anxiety disorder, unspecified; F32.9 Major depressive disorder, single episode, unspecified; F17.210 Nicotine dependence, cigarettes, uncomplicated; Z79.4 Long term (current) use of insulin; Z79.899 Other long term (current) drug therapy
CPT/HCPCS: 36415; 80053; 82962; 83735; 85007; 85027; 96360; 99284; J7120

== ENCOUNTER 2018-08-26 14:57 | Emergency (ER) | payer SELFPAY ==
[2018-08-26 15:07] VITALS: BP 153/100
--- NOTE | 2018-08-26 15:23 | EDM.PDOC ---
ED HPI GENERAL MEDICAL PROBLEM - General Chief Complaint: Genitourinary Problem Stated Complaint: SORE TESTICLES FOR 2 WEEKS Time Seen by Provider: 08/26/18 15:18 Source of Information: Reports: Patient, Family (spouse) History Limitations: Reports: No Limitations - History of Present Illness INITIAL COMMENTS - FREE TEXT/NARRATIVE: 47-year-old male presents to the ED with his reporting bilateral testicular discomfort and pain for the better part of 2 weeks. Currently the right testicles hurting worse than the left. Associated problems passing her water with hesitancy and difficulty getting the urine to flow. Also mild burning and discomfort at times with passage of urine. No associated fever or chills. Patient is an insulin-dependent diabetic. Has pain in his groin bilaterally. No previous similar problems Onset: Gradual Onset Date: 08/12/18 Duration: Day(s):, Getting Worse Location: Reports: Abdomen (Some suprapubic pressure discomfort), Other ( Bilateral testicular pain worse in the right as compared to the left) Quality: Reports: Ache, Pressure, Throbbing Severity: Moderate Improves with: Reports: Rest (78 out of 10) Worsens with: Reports: Other (Worse with walking especially with clothing on.) Context: Reports: Other (Spontaneous occurrence about 2 weeks ago). 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 - Related Data Allergies Allergy/AdvReac Type Severity Reaction Status Date / Time No Known Allergies Allergy Verified 01/19/18 09:40 Home Meds: Home Meds metFORMIN HCl [Metformin HCl] 1,000 mg PO BID 06/15/15 [History] Escitalopram [Lexapro] 20 mg PO DAILY 10/30/15 [History] Insulin Glargine,Hum.Rec.Anlog [David Weller] 35 unit INJECT DAILY 09/22/17 [ History] traZODone HCl [Trazodone HCl] 1 tab PO DAILY 05/06/18 [History] Ciprofloxacin HCl [Cipro] 500 mg PO BID #24 tablet 08/26/18 [Rx] Doxycycline [Vibramycin] 100 mg PO BID #84 cap 08/26/18 [Rx] oxyCODONE HCl/Acetaminophen [Percocet 5-325 mg Tablet] 1 - 2 each PO Q4H PRN # 12 tablet 08/26/18 [Rx] Past Medical History HEENT History: Reports: Other (See Below) Other HEENT History: deviated nasal spetum. Cardiovascular History: Reports: High Cholesterol, Hypertension Other Cardiovascular History: not on medication as his insurance won't pay for it Respiratory History: Reports: None Gastrointestinal History: Reports: Other (See Below) Other Gastrointestinal History: chronic nausea. Genitourinary History: Reports: None Musculoskeletal History: Reports: Back Pain, Chronic, Fracture Neurological History: Reports: None Psychiatric History: Reports: Anxiety, Depression Endocrine/Metabolic History: Reports: Diabetes, Type II, Obesity/BMI 30+ Hematologic History: Reports: None Immunologic History: Reports: None Oncologic (Cancer) History: Reports: None Dermatologic History: Reports: None - Infectious Disease History Infectious Disease History: Reports: Chicken Pox - Past Surgical History Head Surgeries/Procedures: Reports: None HEENT Surgical History: Reports: Oral Surgery Social & Family History - Tobacco Use Smoking Status *Q: Current Every Day Smoker Years of Tobacco use: 30 Packs/Tins Daily: 1 - Caffeine Use Caffeine Use: Reports: Coffee, Soda - Recreational Drug Use Recreational Drug Use: No - Living Situation & Occupation Living situation: Reports: Single, with Significant Other (Fiance), with Family (3 kids) Occupation: Employed ([employer]) ED ROS GENERAL - Review of Systems Review Of Systems: See Below Constitutional: Reports: Decreased Appetite. Denies: Fever, Chills, Malaise, Weakness, Fatigue, Weight Loss HEENT: Reports: No Symptoms Respiratory: Reports: No Symptoms Cardiovascular: Reports: No Symptoms Endocrine: Reports: No Symptoms GI/Abdominal: Reports: Abdominal Pain (Some suprapubic pressure discomfort at times) : Reports: Other (Bilateral testicular pain and discomfort. Hesitancy and difficulty passing his urine with some dysuria at times.) Musculoskeletal: Reports: No Symptoms Skin: Reports: No Symptoms Neurological: Reports: No Symptoms Psychiatric: Reports: No Symptoms Hematologic/Lymphatic: Reports: No Symptoms Immunologic: Reports: No Symptoms ED EXAM, RENAL/ - Physical Exam Exam: See Below Exam Limited By: No Limitations General Appearance: Alert, WD/WN, Moderate Distress, Other (He is afebrile. He is mildly tachycardic at rest 10 3/m. BP is elevated 153 100. Sats are 98% on room air.) Eye Exam: Bilateral Eye: Normal Inspection Throat/Mouth: Normal Inspection, Normal Lips, Normal Oropharynx, Normal Voice Head: Atraumatic, Normocephalic GI/Abdominal: Normal Bowel Sounds, Soft, Tender (Tender in both inguinal areas without hernias evident. There is be in the distribution of the vas deferens.) (Male) Exam: Scrotum Tenderness (R) (Very mild.), Testicular Tenderness (L), Testicular Tenderness (R) (Marked tenderness of the testicle and the epididymis particularly the posterior pole.), Other (Marked tenderness of the right vas deferens as well.) Back Exam: Normal Inspection, Full Range of Motion. No: CVA Tenderness (L), CVA Tenderness (R) Extremities: Normal Inspection, Normal Range of Motion, Non-Tender Neurological: Alert, Oriented, CN II-XII Intact, Normal Cognition Psychiatric: Anxious Skin Exam: Warm, Dry, Intact, Normal Color, No Rash Course - Vital Signs Last Recorded V/S: Last Vital Signs Temp 36.3 C 08/26/18 15:05 Pulse 103 H 08/26/18 15:05 Resp 16 08/26/18 15:05 BP 153/100 H 08/26/18 15:05 Pulse Ox 98 08/26/18 15:05 - Orders/Labs/Meds Orders: Active Orders 24 hr Category Date Time Status URINALYSIS W/MICROSCOPIC [UA W/MICROSCOPIC] [URIN] Stat Lab 08/26/18 15:12 Received - Radiology Interpretation Free Text/Narrative:: 47-year-old male presents to the ED with bilateral testicular pain for the last 2 weeks. Worse on the right side as compared to the left today. Patient also appreciates difficulty passing his urine with hesitancy and slow niacin starting his urinary stream is mild dysuria at times. No purulent discharge per urethra appreciated. He is in a monogamous relationship. is an insulin- dependent diabetic with no past history of prostatitis or epididymitis. Evaluation reveals marked tenderness of the right testicle and the superior pole of the right epididymis compatible with epididymoorchitis. The history is suggestive of acute prostatitis with retrograde infection of the epididymis and testicle. Treatment will therefore be 6 weeks of antibiotic therapy i.e. doxycycline 100 mg twice a day for 6 weeks. Cipro 500 mg twice daily for the first 12 days will also be added to bring about faster symptom relief. Aleve 2 tablets every 8 hours as needed for the next week to 10 days to reduce pain and inflammation. I also gave him 10 tablets of Percocet 5/325 mg to be taken one tablet every 4-6 hours no safe for pain relief until the anti-inflammatories become ineffectual. Suggested follow-up with his personal care physician in 6 weeks' time .Sooner if not markedly improved after 14 days of antibiotic treatment Departure - Departure Time of Disposition: 15:19 Disposition: Home, Self-Care 01 Condition: Fair Clinical Impression: Prostatitis, Epididymitis - Discharge Information *PRESCRIPTION DRUG MONITORING PROGRAM REVIEWED*: Not Applicable *COPY OF PRESCRIPTION DRUG MONITORING REPORT IN PATIENT STANISLAV: Not Applicable Prescriptions: Ciprofloxacin HCl [Cipro] 500 mg PO BID #24 tablet Doxycycline [Vibramycin] 100 mg PO BID #84 cap oxyCODONE HCl/Acetaminophen [Percocet 5-325 mg Tablet] 1 - 2 each PO Q4H PRN # 12 tablet PRN Reason: pain relief. Referrals: Sharee Gregory LOCAL BULK DRIVER [Primary Care Provider] - Forms: ED Department Discharge Additional Instructions: Evaluation in the emergency room today in regards to bilateral testicular tenderness mostly on the right side. This is been going on for the last couple of weeks. Associated hesitancy and difficulty passing urine with some mild burning or dysuria. This is suggestive of infection in the prostate gland called prostatitis. They often the infection will travel retrograde which means downwards through the vas deferens to the testicles to cause infection and inflammation of the epididymis which is coiled tubing behind the testicle. Right testicle is sore but the superior polar upper pole of the right epididymis is inflamed and swollen. We call this infection epididymal orchitis. This means infection of the testicle and the epididymis which lies behind it. Treatment is to be Aleve 2 tablets every 8 hours for the next 10 days to reduce pain and swelling. Percocet tabs 5/325 mg one or 2 every 4-6 hours for pain relief until the anti-inflammatories become ineffectual which is usually a day and a half to 2 days. Antibiotics will need to be Cipro 500 mg twice daily for the next 12 days and doxycycline 100 mg twice daily for the next 6 weeks to bring the infection under control. Expect gradual improvement in the testicle pain and discomfort over the next 10 days. He usually takes about 3 days for the medicine to start to work well. Activity as tolerated. Follow-up with personal care physician if not markedly improved. Low back to normal in 14 days time. - My Orders Last 24 Hours: My Active Orders 08/26/18 15:12 URINALYSIS W/MICROSCOPIC [UA W/MICROSCOPIC] [URIN] Stat - Assessment/Plan Last 24 Hours: My Active Orders 08/26/18 15:12 URINALYSIS W/MICROSCOPIC [UA W/MICROSCOPIC] [URIN] Stat
== END 2018-08-26 15:39 | disposition home or self-care (01) ==
LOC: JD.ED 14:57
DX: N45.1 Epididymitis (principal); N41.9 Inflammatory disease of prostate, unspecified; F17.210 Nicotine dependence, cigarettes, uncomplicated; E78.00 Pure hypercholesterolemia, unspecified; E11.9 Type 2 diabetes mellitus without complications; I10 Essential (primary) hypertension; Z79.899 Other long term (current) drug therapy; Z79.4 Long term (current) use of insulin
CPT/HCPCS: 81001; 99284

== ENCOUNTER 2019-04-19 05:44 | Emergency (ER) | payer MEDICAID ==
[2019-04-19 06:10] VITALS: BP 137/78; PULSE 108
[2019-04-19] MEDS ORDERED: Ketorolac 60 MG/2 ML SDV IM ONE (06:46)
--- NOTE | 2019-04-19 06:57 | EDM.PDOC ---
ED HPI GENERAL MEDICAL PROBLEM - General Chief Complaint: Chest Pain Stated Complaint: RIGHT SIDE CHEST PAIN Time Seen by Provider: 04/19/19 06:46 Source of Information: Reports: Patient History Limitations: Reports: No Limitations - History of Present Illness INITIAL COMMENTS - FREE TEXT/NARRATIVE: This is a 48-year-old male. 2-day history of pleuritic type chest pain on the right side. He states that breathing deep causes the sharp pain and so he tends to not deep breathe. He denies any fever or chills. He denies any cough. He denies any wheezing. He has had no trauma to his chest wall other than when he fell 2 weeks ago when he was having no symptoms afterwards. He denies any new or increased swelling in his legs or pain in his legs or redness of his legs. Chest Pain Score (Numeric/FACES): 10 - Related Data Allergies Allergy/AdvReac Type Severity Reaction Status Date / Time No Known Allergies Allergy Verified 09/24/18 13:17 Home Meds: Home Meds metFORMIN HCl [Metformin HCl] 1,000 mg PO BID 06/15/15 [History] Escitalopram [Lexapro] 20 mg PO DAILY 10/30/15 [History] Insulin Glargine,Hum.Rec.Anlog [Toujeo Solostar] 35 unit INJECT DAILY 09/22/17 [ History] traZODone HCl [Trazodone HCl] 1 tab PO DAILY 05/06/18 [History] Doxycycline [Vibramycin] 100 mg PO BID #84 cap 08/26/18 [Rx] Hydrocodone/Acetaminophen [Hydrocodon-Acetaminophen 5-325] 1 - 2 each PO Q6HR PRN #20 tablet 09/24/18 [Rx] atorvaSTATin Calcium [Atorvastatin Calcium] 20 mg PO DAILY 09/24/18 [History] Amoxicillin/Potassium Clav [Augmentin 875-125 Tablet] 1 each PO BID #20 tablet 04/19/19 [Rx] Hydrocodone/Acetaminophen [Hydrocodon-Acetaminophen 5-325] 1 each PO Q6H PRN # 12 tablet 04/19/19 [Rx] Past Medical History HEENT History: Reports: Other (See Below) Other HEENT History: deviated nasal spetum. Cardiovascular History: Reports: High Cholesterol, Hypertension Other Cardiovascular History: not on medication as his insurance won't pay for it Respiratory History: Reports: None Gastrointestinal History: Reports: Other (See Below) Other Gastrointestinal History: chronic nausea. Genitourinary History: Reports: Prostate Disorder Musculoskeletal History: Reports: Back Pain, Chronic, Fracture Neurological History: Reports: None Psychiatric History: Reports: Anxiety, Depression Endocrine/Metabolic History: Reports: Diabetes, Type II, Obesity/BMI 30+ Hematologic History: Reports: None Immunologic History: Reports: None Oncologic (Cancer) History: Reports: None Dermatologic History: Reports: None - Infectious Disease History Infectious Disease History: Reports: Chicken Pox - Past Surgical History Head Surgeries/Procedures: Reports: None HEENT Surgical History: Reports: Oral Surgery Social & Family History - Tobacco Use Smoking Status *Q: Current Status Unknown Years of Tobacco use: 20 Packs/Tins Daily: 1 - Caffeine Use Caffeine Use: Reports: None - Recreational Drug Use Recreational Drug Use: Yes Recreational Drug Type: Reports: Marijuana/Hashish - Living Situation & Occupation Living situation: Reports: Single, with Significant Other (Fiance), with Family (3 kids) Occupation: Employed ([employer]) ED ROS GENERAL - Review of Systems Review Of Systems: See Below Constitutional: Denies: Fever, Chills HEENT: Reports: No Symptoms Respiratory: Reports: Pleuritic Chest Pain. Denies: Shortness of Breath, Cough Cardiovascular: Reports: Chest Pain. Denies: Lightheadedness Endocrine: Reports: No Symptoms GI/Abdominal: Denies: Abdominal Pain, Diarrhea, Nausea, Vomiting : Reports: No Symptoms Musculoskeletal: Reports: No Symptoms Skin: Reports: No Symptoms Neurological: Reports: No Symptoms Psychiatric: Reports: Anxiety Hematologic/Lymphatic: Reports: No Symptoms ED EXAM, GENERAL - Physical Exam Exam: See Below Exam Limited By: No Limitations General Appearance: Alert, WD/WN, No Apparent Distress, Anxious Eye Exam: Bilateral Eye: Normal Inspection Ears: Normal External Exam Nose: Normal Inspection Throat/Mouth: Normal Lips, Normal Voice, No Airway Compromise Head: Normocephalic Neck: Supple Respiratory/Chest: Lungs Clear, Normal Breath Sounds, Other (He appears to get some sharp pain with deep breathing and it is on the right side, there is no retractions, minimal splinting) Cardiovascular: Regular Rate, Rhythm, No Murmur GI/Abdominal: Soft Back Exam: Normal Inspection, Full Range of Motion Extremities: Normal Inspection, Normal Range of Motion, Other (Minimal pedal edema) Neurological: Alert, Oriented Psychiatric: Anxious Skin Exam: Warm, Dry EKG INTERPRETATION EKG Date: 04/19/19 Time: 18:30 EKG Interpretation Comments: EKG shows a normal sinus rhythm with rate of 98, there is no acute ST or T wave changes, he does have some elevated J-point suggesting early repolarization pattern but there is no ischemia noted. Course - Vital Signs Last Recorded V/S: Last Vital Signs Temp 97.8 F 04/19/19 06:08 Pulse 108 H 04/19/19 06:08 Resp 24 H 04/19/19 06:08 BP 137/78 04/19/19 06:08 Pulse Ox 96 04/19/19 06:08 - Orders/Labs/Meds Orders: Active Orders 24 hr Category Date Time Status EKG 12 Lead [EKG Documentation Completion] [RC] STAT Care 04/19/19 06:21 Active Chest 2V [CR] Stat Exams 04/19/19 06:47 Taken Sodium Chloride 0.9% [Normal Saline] 1,000 ml Med 04/19/19 07:15 Active IV ASDIRECTED Medication Orders Sodium Chloride (Normal Saline) 1,000 mls @ 1,000 mls/hr IV ASDIRECTED TAMEKA Labs: Laboratory Tests 04/19/19 04/19/19 04/19/19 Range/Units 06:39 06:39 06:39 WBC 16.13 H (4.23-9.07) K/mm3 RBC 4.68 (4.63-6.08) M/mm3 Hgb 13.5 L D (13.7-17.5) gm/dl Hct 40.3 (40.1-51.0) % MCV 86.1 (79.0-92.2) fl MCH 28.8 (25.7-32.2) pg MCHC 33.5 (32.2-35.5) g/dl RDW Std Deviation 39.7 (35.1-43.9) fL Plt Count 346 H (163-337) K/mm3 MPV 9.7 (9.4-12.3) fl Neut % (Auto) 78.3 H (34.0-67.9) % Lymph % (Auto) 11.2 L (21.8-53.1) % [place] % (Auto) 8.1 (5.3-12.2) % Eos % (Auto) 2.1 (0.8-7.0) Baso % (Auto) 0.1 (0.1-1.2) % Neut # (Auto) 12.63 H (1.78-5.38) K/mm3 Lymph # (Auto) 1.80 (1.32-3.57) K/mm3 [place] # (Auto) 1.30 H (0.30-0.82) K/mm3 Eos # (Auto) 0.34 (0.04-0.54) K/mm3 Baso # (Auto) 0.02 (0.01-0.08) K/mm3 Manual Slide Review Normal smear D-Dimer, Quantitative 0.87 H (0.19-0.50) mg/L Sodium 134 L (136-145) mEq/L Potassium 4.2 (3.5-5.1) mEq/L Chloride 97 L (98-107) mEq/L Carbon Dioxide 27 (21-32) mEq/L Anion Gap 14.2 (5-15) BUN 18 (7-18) mg/dL Creatinine 0.7 (0.7-1.3) mg/dL Est Cr Clr Drug Dosing 153.31 mL/min Estimated GFR (MDRD) > 60 (>60) mL/min BUN/Creatinine Ratio 25.7 H (14-18) Glucose 415 H (74-106) mg/dL Calcium 9.2 (8.5-10.1) mg/dL Total Bilirubin 0.5 (0.2-1.0) mg/dL AST 13 L (15-37) U/L ALT 19 (16-63) U/L Alkaline Phosphatase 157 H (46-116) U/L Troponin I < 0.017 (0.00-0.056) ng/mL Total Protein 6.9 (6.4-8.2) g/dl Albumin 2.9 L (3.4-5.0) g/dl Globulin 4.0 gm/dL Albumin/Globulin Ratio 0.7 L (1-2) Meds: Medications Generic Name Dose Route Start Last Admin Trade Name Freq PRN Reason Stop Dose Admin Sodium Chloride 1,000 mls @ 1,000 mls/hr 04/19/19 07:15 Normal Saline IV ASDIRECTED TAMEKA Discontinued Medications Generic Name Dose Route Start Last Admin Trade Name [place]ena PRN Reason Stop Dose Admin Ceftriaxone Sodium Confirm 04/19/19 07:29 04/19/19 07:49 Rocephin Administered 04/19/19 07:30 Not Given Dose 2 gm IV .STK-MED ONE Ceftriaxone Sodium 2 gm/ 100 mls @ 200 mls/hr 04/19/19 07:12 04/19/19 07:49 Sodium Chloride IV 04/19/19 07:41 Not Given ONETIME ONE Sodium Chloride Confirm 04/19/19 07:29 04/19/19 07:49 Normal Saline Administered 04/19/19 07:30 Not Given Dose 100 mls @ as directed .ROUTE .STK-MED ONE Ketorolac Tromethamine 60 mg 04/19/19 06:46 Toradol IM 04/19/19 06:47 ONETIME ONE Ketorolac Tromethamine 30 mg 04/19/19 07:25 04/19/19 07:49 Toradol IVPUSH 04/19/19 07:26 Not Given ONETIME ONE - Re-Assessments/Exams Free Text/Narrative Re-Assessment/Exam: 04/19/19 07:28 The patient is noted to have a right lower lobe pneumonia on chest x-ray and a white count of 16,000. The elevation of the d-dimer does not concern me at this time due to his pneumonia causing his pleuritic chest pain and absence of lower extremity symptoms. 04/19/19 07:44 The nurse was attempting to start an IV so we give him some IV antibiotics and some Toradol for the pleuritic chest pain. Apparently it hurt and so he jerked his hand back. He is refusing an IV at this time. He is angry because he had to wait when we had other critical patients in the ER. He is now requesting a prescription for antibiotics and something for pain and he wants to go home. With his permission I spoke to his regarding his diagnosis of right lower lobe pneumonia and that we were attempting to give him IV antibiotics in order to take care of this pneumonia more effectively but he now refuses. If she notices that he is getting worse then she needs to bring him back to the ER. She nods her head in understanding. 04/19/19 07:51 Patient has been belligerent since he arrived to the ER because he wants something immediately for pain. I did go in and talk to them twice about his outburst and yelling and the police were here and actually walked in the room one time to help calm him down. Because we did not establish an IV on him he did not receive any Toradol IV or Rocephin IV. The patient has refused an IV at this time so we will provide prescriptions for him to get filled today for his symptoms. I did encourage him to follow-up with his family doctor this week for recheck or return to the ER if his symptoms worsen. Departure - Departure Time of Disposition: 07:45 Disposition: Home, Self-Care 01 Condition: Fair Clinical Impression: Pleuritic chest pain Right lower lobe pneumonia Qualifiers: Pneumonia type: due to unspecified organism Qualified Code(s): J18.9 - Pneumonia, unspecified organism Leukocytosis Qualifiers: Leukocytosis type: unspecified Qualified Code(s): D72.829 - Elevated white blood cell count, unspecified - Discharge Information *PRESCRIPTION DRUG MONITORING PROGRAM REVIEWED*: Yes *COPY OF PRESCRIPTION DRUG MONITORING REPORT IN PATIENT STANISLAV: No Prescriptions: Amoxicillin/Potassium Clav [Augmentin 875-125 Tablet] 1 each PO BID #20 tablet Hydrocodone/Acetaminophen [Hydrocodon-Acetaminophen 5-325] 1 each PO Q6H PRN # 12 tablet PRN Reason: Pain Instructions: Community-Acquired Pneumonia, Adult, [id number] Referrals: Sharee Gregory, ECONOMIC ADVISER [Primary Care Provider] - Forms: ED Department Discharge Additional Instructions: Get the prescriptions and antibiotics filled at [facility] across from [facility] today and start taking them today, also consider taking some Advil or Aleve to help with the inflammation that is causing the sharp pain on a faithful basis for the next 2 to 3 days, use the pain medicine as needed, if you worsen especially if fever greater than 102.5 you need to return to the ER, follow-up with your family doctor this week for recheck Sepsis Event Note - Evaluation Sepsis Screening Result: No Definite Risk - Focused Exam Vital Signs: Vital Signs Temp Pulse Resp BP Pulse Ox 04/19/19 06:08 97.8 F 108 H 24 H 137/78 96 Date Exam was Performed: 04/19/19 Time Exam was Performed: 07:51 - My Orders Last 24 Hours: My Active Orders 04/19/19 06:21 EKG 12 Lead [EKG Documentation Completion] [RC] STAT 04/19/19 06:47 Chest 2V [CR] Stat 04/19/19 07:15 Sodium Chloride 0.9% [Normal Saline] 1,000 ml IV ASDIRECTED - Assessment/Plan Last 24 Hours: My Active Orders 04/19/19 06:21 EKG 12 Lead [EKG Documentation Completion] [RC] STAT 04/19/19 06:47 Chest 2V [CR] Stat 04/19/19 07:15 Sodium Chloride 0.9% [Normal Saline] 1,000 ml IV ASDIRECTED
[2019-04-19] MEDS ORDERED: cefTRIAXone 2 GM in Sodium Chloride 0.9% 100 ML IV ONE (07:12)
[2019-04-19] MEDS ORDERED: Sodium Chloride 0.9% 1,000 ML IV SCH (07:15)
[2019-04-19] MEDS ORDERED: Ketorolac 30 MG/ML SDV IVPUSH ONE (07:25)
[2019-04-19] MEDS ORDERED: Sodium Chloride 0.9% 100 ML ONE (07:29)
[2019-04-19] MEDS ORDERED: cefTRIAXone 2 GM AdvVial IV ONE (07:29)
--- NOTE | 2019-04-19 08:37 | CR ---
Chest: 2 views of the chest were obtained. Comparison: Prior chest x-ray of 01/19/18. Increased density noted within the right lung base. Lungs otherwise are clear. Heart size and mediastinum are normal. Bony structures shows degenerative endplate spurring within the spine with scattered disc space narrowing. Mild scoliosis is noted. Impression: 1. Increased density within the right lung base. Findings most likely due to atelectasis although small area of pneumonia is possible if patient has infectious symptoms. 2. No other acute abnormality is appreciated. Diagnostic code #3 This report was dictated in [place] Standard Time
== END 2019-04-19 07:53 | disposition home or self-care (01) ==
LOC: JD.ED 05:44
DX: J18.9 Pneumonia, unspecified organism (principal); D72.829 Elevated white blood cell count, unspecified; F17.210 Nicotine dependence, cigarettes, uncomplicated; F41.9 Anxiety disorder, unspecified; F32.9 Major depressive disorder, single episode, unspecified; E11.9 Type 2 diabetes mellitus without complications; E66.9 Obesity, unspecified; I10 Essential (primary) hypertension; E78.00 Pure hypercholesterolemia, unspecified; Z79.899 Other long term (current) drug therapy; Z79.84 Long term (current) use of oral hypoglycemic drugs
CPT/HCPCS: 36415; 71046; 71046-26; 80053; 84484; 85025; 85379; 93005; 93010; 99284; 99285-25

== ENCOUNTER 2020-02-26 20:20 | Emergency (ER) | payer MEDICAID ==
[2020-02-26] MEDS ORDERED: FLU VACC QS2020-21(6MOS UP)/PF 60 MCG/0.5 ML SYRINGE IM ONE (20:41)
[2020-02-26 20:44] VITALS: BP 151/87; PULSE 94
[2020-02-26] MEDS ORDERED: Gabapentin 300 MG Cap PO ONE (20:58)
--- NOTE | 2020-02-26 21:04 | EDM.PDOC ---
ED HPI GENERAL MEDICAL PROBLEM - General Chief Complaint: Diabetic Complaint Stated Complaint: BOTH FEET ARE PAINFUL AND SWOLLEN Time Seen by Provider: 02/26/20 20:32 Source of Information: Reports: Patient History Limitations: Reports: No Limitations - History of Present Illness INITIAL COMMENTS - FREE TEXT/NARRATIVE: This is a 49-year-old male. He is an insulin-dependent diabetic and states his blood sugars run around 350. He does have diabetic feet with neuropathy in the forefoot and distally but not in the heel or the ankle. He has been having increasing pain in his forefoot and toes. He does have calluses that have cracked but there is no evidence of infection at this time. He comes to the ER simply because he wants something for pain for his neuropathy. He is exposed to see his primary care provider on the for reevaluation. I suggested to him that perhaps they need to adjust his insulin so that his blood sugars remain somewhere around 200 rather than 350. He does indicate that if he gets below 120 then he starts feeling bad and he goes into shock. Denies any recent illnesses no colds coughs fever chills or other acute symptoms. Right Toe-[place] Pain Score (Numeric/FACES): 8 - Related Data Allergies Allergy/AdvReac Type Severity Reaction Status Date / Time No Known Allergies Allergy Verified 09/24/18 13:17 Home Meds: Home Meds metFORMIN HCl [Metformin HCl] 1,000 mg PO BID 06/15/15 [History] Escitalopram [Lexapro] 20 mg PO DAILY 10/30/15 [History] Insulin Glargine,Hum.Rec.Anlog [David Weller] 45 unit INJECT BID 09/22/17 [History] atorvaSTATin Calcium [Atorvastatin Calcium] 20 mg PO DAILY 09/24/18 [History] Gabapentin [Neurontin] 300 mg PO TID #90 cap 02/26/20 [Rx] Past Medical History HEENT History: Reports: Other (See Below) Other HEENT History: deviated nasal spetum. Cardiovascular History: Reports: High Cholesterol, Hypertension Other Cardiovascular History: not on medication as his insurance won't pay for it Respiratory History: Reports: None Gastrointestinal History: Reports: Other (See Below) Other Gastrointestinal History: chronic nausea. Genitourinary History: Reports: Prostate Disorder Musculoskeletal History: Reports: Back Pain, Chronic, Fracture Neurological History: Reports: None Psychiatric History: Reports: Anxiety, Depression Endocrine/Metabolic History: Reports: Diabetes, Type II, Obesity/BMI 30+ Hematologic History: Reports: None Immunologic History: Reports: None Oncologic (Cancer) History: Reports: None Dermatologic History: Reports: None - Infectious Disease History Infectious Disease History: Reports: Chicken Pox - Past Surgical History Head Surgeries/Procedures: Reports: None HEENT Surgical History: Reports: Oral Surgery Other HEENT Surgeries/Procedures: wisdom teeth removed. Social & Family History - Tobacco Use Tobacco Use Status *Q: Current Every Day Tobacco User Years of Tobacco use: 35 Packs/Tins Daily: 1 - Caffeine Use Caffeine Use: Reports: Coffee, Soda, Tea - Recreational Drug Use Recreational Drug Use: No - Living Situation & Occupation Living situation: Reports: Single, with Significant Other (Fiance), with Family (3 kids) Occupation: Employed ([employer]) ED ROS GENERAL - Review of Systems Review Of Systems: See Below Constitutional: Denies: Fever, Chills HEENT: Reports: No Symptoms Respiratory: Denies: Shortness of Breath, Cough Cardiovascular: Reports: No Symptoms Endocrine: Reports: No Symptoms GI/Abdominal: Reports: No Symptoms : Reports: No Symptoms Musculoskeletal: Reports: Foot Pain Skin: Reports: Other (Foot calluses) Neurological: Reports: Other (Bilateral diabetic neuropathy of his feet) Psychiatric: Reports: No Symptoms ED EXAM GENERAL NO PERIP PULSE - Physical Exam Exam: See Below Exam Limited By: No Limitations General Appearance: Alert, WD/WN, No Apparent Distress Eye Exam: Bilateral Eye: Normal Inspection Ears: Normal External Exam Throat/Mouth: Normal Voice, No Airway Compromise Head: Normocephalic Neck: Supple Respiratory/Chest: No Respiratory Distress, Lungs Clear, Normal Breath Sounds Cardiovascular: Regular Rate, Rhythm, No Murmur GI/Abdominal: Soft Back Exam: Normal Inspection, Full Range of Motion Extremities: Normal Inspection, Normal Range of Motion, Other (Feet have calluses on the great toes and on the plantar pad of the forefoot there is calluses as well with cracks in them but there is no bleeding there is no evidence of infection either foot. He complains of pain and throbbing and numbness of his forefoot plantar surface and his toes. He is able to move his ankles and denies any heel pain or ankle pain.) Neurological: Alert, Oriented Psychiatric: Normal Affect, Normal Mood Skin Exam: Warm, Dry Course - Vital Signs Last Recorded V/S: Last Vital Signs Temp 98.1 F 02/26/20 20:39 Pulse 94 02/26/20 20:39 Resp 20 02/26/20 20:39 BP 151/87 H 02/26/20 20:39 Pulse Ox 100 02/26/20 20:39 - Orders/Labs/Meds Orders: Active Orders 24 hr Category Date Time Status Influenza Vaccine Charge [RC] .DISCHARGE Care 02/26/20 20:38 Active Influenza Vaccine Charge [RC] .DISCHARGE Care 02/26/20 20:41 Active Gabapentin [Neurontin] Med 02/26/20 20:58 Once 300 mg PO ONETIME ONE Meds: Medications Discontinued Medications Generic Name Dose Route Start Last Admin Trade Name La Nena PRN Reason Stop Dose Admin Influenza Virus Vaccine 60 mcg 02/26/20 20:41 Fluzone Quad [id number] Syringe IM 02/26/20 20:42 .ONCE ONE - Re-Assessments/Exams Free Text/Narrative Re-Assessment/Exam: 02/26/20 21:03 To the patient at length about taking care of his feet and getting some cornhusker's and when the tissue is nice and soft over the calluses to gently use a pumice stone to rub it off but do not get down to the quick since it could cause an infection if he scrubs it too hard. I suggested that he use the pumice stone on the great toe callus as well as the plantar surface of the forefoot area where he has calluses and cracks. Departure - Departure Time of Disposition: 21:04 Disposition: Home, Self-Care 01 Condition: Fair Clinical Impression: Insulin dependent diabetes mellitus, Callus of foot Diabetic neuropathy associated with type 2 diabetes mellitus Qualifiers: Diabetes mellitus complication detail: diabetic polyneuropathy Qualified Code(s): E11.42 - Type 2 diabetes mellitus with diabetic polyneuropathy - Discharge Information *PRESCRIPTION DRUG MONITORING PROGRAM REVIEWED*: Not Applicable *COPY OF PRESCRIPTION DRUG MONITORING REPORT IN PATIENT STANISLAV: Not Applicable Prescriptions: Gabapentin [Neurontin] 300 mg PO TID #90 cap Instructions: Diabetic Neuropathy, Corns and Calluses Referrals: Sharee Gregory, GLOBAL CLIMATE CHANGE ANALYST [Primary Care Provider] - Additional Instructions: We gave you a gabapentin 300 mg in the ER, tomorrow take the gabapentin once in the morning and once at night, then on Saturday you take it 3 times a day morning, noon and night, continue with this until you see Sharee Gregory NP March 07 and if needful at that time she will begin to increase the dose appropriately until the neuropathy eases up, in the meantime get some cornhusker's lotion and put it on the calluses gently twice a day and once the calluses get soft use a pumice stone to gently rub the calluses down but do not rub them hard enough to get into the quick of the skin or you could develop an infection in your feet and that would not be good, return to the ER if needed Sepsis Event Note (ED) - Evaluation Sepsis Screening Result: No Definite Risk - Focused Exam Vital Signs: Vital Signs Temp Pulse Resp BP Pulse Ox 02/26/20 20:39 98.1 F 94 20 151/87 H 100 - My Orders Last 24 Hours: My Active Orders 02/26/20 20:38 Influenza Vaccine Charge [RC] .DISCHARGE 02/26/20 20:58 Gabapentin [Neurontin] 300 mg PO ONETIME ONE - Assessment/Plan Last 24 Hours: My Active Orders 02/26/20 20:38 Influenza Vaccine Charge [RC] .DISCHARGE 02/26/20 20:58 Gabapentin [Neurontin] 300 mg PO ONETIME ONE
== END 2020-02-26 21:17 | disposition home or self-care (01) ==
LOC: JD.ED 20:20
DX: E11.42 Type 2 diabetes mellitus with diabetic polyneuropathy (principal); L84 Corns and callosities; I10 Essential (primary) hypertension; E78.00 Pure hypercholesterolemia, unspecified; F41.9 Anxiety disorder, unspecified; F32.9 Major depressive disorder, single episode, unspecified; F17.210 Nicotine dependence, cigarettes, uncomplicated; E66.9 Obesity, unspecified; Z68.26 Body mass index [BMI] 26.0-26.9, adult; Z23 Encounter for immunization; Z79.899 Other long term (current) drug therapy; Z79.4 Long term (current) use of insulin
CPT/HCPCS: 90471; 90686; 99284; A9270; G0008

== ENCOUNTER 2020-03-25 05:39 | Emergency (ER) | payer MEDICAID ==
[2020-03-25 05:52] VITALS: BP 146/91; PULSE 103
--- NOTE | 2020-03-25 05:56 | EDM.PDOC ---
ED HPI GENERAL MEDICAL PROBLEM - General Chief Complaint: Diabetic Complaint Stated Complaint: UNABLE TO FEEL FEET/DIABETIC Time Seen by Provider: 03/25/20 05:56 Source of Information: Reports: Patient History Limitations: Reports: No Limitations - History of Present Illness INITIAL COMMENTS - FREE TEXT/NARRATIVE: 49-year-old male presents to the ED for evaluation of right great toe pain gradually worsening over the last 2 days. He states he had spontaneous vomiting last evening for no apparent reason although he believes he made himself anxious due to concerns of developing gangrene in his toes. Of note the patient is a type II diabetic diagnosed about 12 years ago and initially treated with oral medications and did not take his diabetes very seriously. He reports that he spent on insulin for diabetic management for about 5 or 6 years in combination with Metformin twice daily. 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 Current pain is in the right great toe and radiates along the medial aspect of his dorsal lateral foot. He is not aware of any fever chills. He has not taken anything for pain. The patient does have bilateral peripheral neuropathy in both lower extremities and was recently given a dose of gabapentin which he discontinued after 3 days because he did not like the way it made him feel. Onset: Gradual Onset Date: 03/23/20 Duration: Day(s):, Getting Worse Location: Reports: Lower Extremity, Right (Right great toe pain rating along the dorsal lateral) Quality: Reports: Ache ( right foot), Throbbing Severity: Moderate Improves with: Reports: None Worsens with: Reports: Other, Movement Context: Reports: Other (Continuous occurrence). Denies: Activity, Exercise, Lifting, Sick Contact (In full to walk on his right foot), Trauma Associated Symptoms: Reports: Loss of Appetite, Nausea/Vomiting (100 once). Denies: Fever/Chills, Headaches Treatments COLOR DIPPER: Reports: Other (see below) (Has taken no pain medications.) Right Foot Pain Score (Numeric/FACES): 10 - Related Data Allergies Allergy/AdvReac Type Severity Reaction Status Date / Time No Known Allergies Allergy Verified 03/25/20 05:48 Home Meds: Home Meds metFORMIN HCl [Metformin HCl] 1,000 mg PO BID 06/15/15 [History] Escitalopram [Lexapro] 20 mg PO DAILY 10/30/15 [History] Insulin Glargine,Hum.Rec.Anlog [Toucassandra Solostar] 45 unit INJECT BID 09/22/17 [History] atorvaSTATin Calcium [Atorvastatin Calcium] 20 mg PO DAILY 09/24/18 [History] Gabapentin [Neurontin] 300 mg PO TID #90 cap 02/26/20 [Rx] Cefdinir [Omnicef] 300 mg PO BID #14 cap 03/25/20 [Rx] Doxycycline [Vibra-Tabs] 100 mg PO Q12HR #28 tab 03/25/20 [Rx] Past Medical History HEENT History: Reports: Other (See Below) Other HEENT History: deviated nasal spetum. Cardiovascular History: Reports: High Cholesterol, Hypertension Other Cardiovascular History: not on medication as his insurance won't pay for it Respiratory History: Reports: None Gastrointestinal History: Reports: Other (See Below) Other Gastrointestinal History: chronic nausea. Genitourinary History: Reports: Prostate Disorder Musculoskeletal History: Reports: Back Pain, Chronic, Fracture Neurological History: Reports: None Psychiatric History: Reports: Anxiety, Depression Endocrine/Metabolic History: Reports: Diabetes, Type II, Obesity/BMI 30+ Hematologic History: Reports: None Immunologic History: Reports: None Oncologic (Cancer) History: Reports: None Dermatologic History: Reports: None - Infectious Disease History Infectious Disease History: Reports: Chicken Pox - Past Surgical History Head Surgeries/Procedures: Reports: None HEENT Surgical History: Reports: Oral Surgery Other HEENT Surgeries/Procedures: wisdom teeth removed. Social & Family History - Caffeine Use Caffeine Use: Reports: Coffee, Soda, Tea - Living Situation & Occupation Living situation: Reports: Single, with Significant Other (Fiance), with Family (3 kids) Occupation: Employed ([employer]) [employer] [facility] - Review of Systems Review Of Systems: See Below Constitutional: Reports: Malaise, Weakness, Fatigue. Denies: Fever, Chills, Decreased Appetite, Weight Loss HEENT: Reports: No Symptoms Respiratory: Reports: No Symptoms Cardiovascular: Reports: No Symptoms Endocrine: Reports: Fatigue GI/Abdominal: Reports: No Symptoms : Reports: No Symptoms Musculoskeletal: Reports: Foot Pain Skin: Reports: Other (Pain right great toe at present time appreciates a discharge coming from the distal aspect of his left great toenail.) Neurological: Reports: Other (Has bilateral peripheral neuropathy lower extremities up to mid tib-fib bilaterally) Psychiatric: Reports: Depression Hematologic/Lymphatic: Reports: No Symptoms (Escitalopram once daily) Immunologic: Reports: No Symptoms ED EXAM GENERAL NO PERIP PULSE - Physical Exam Exam: See Below Exam Limited By: No Limitations General Appearance: Alert, WD/WN, Anxious, Other (Patient is moderately anxious. Temperature is 36.4 heart rate 103 in sinus respiratory 16 with sats of 99% room air BP 1 4691.) Eye Exam: Bilateral Eye: Normal Inspection, PERRL Throat/Mouth: Normal Inspection, Normal Lips, Normal Oropharynx Head: Atraumatic, Normocephalic Neck: Normal Inspection, Supple, Non-Tender, Full Range of Motion. No: Lymphadenopathy (L), Lymphadenopathy (R) Respiratory/Chest: No Respiratory Distress, Lungs Clear, Normal Breath Sounds, No Accessory Muscle Use Cardiovascular: Normal Peripheral Pulses, Regular Rate, Rhythm, No Edema, No Gallop, No Murmur, No Rub Extremities: Other (On examination of his feet on the left side he does have fungal infection involving the left great toenail and there is a bit of weeping material coming from the distal aspect of the total I suspect just water under the toenail from showering. He does not appear to be purulent. On the right side however the toe is very warm to palpation with no evidence of gangrene. T here is erythema of the toe and some early cellulitis along the dorsal lateral aspect of his Rt foot. ) Neurological: Alert, Oriented, CN II-XII Intact, Normal Cognition. No: Normal Gait (Telogen gait walking on the lateral aspect of his right foot) Psychiatric: Normal Affect, Normal Mood Skin Exam: Warm, Dry, Intact, Erythema (Erythema and tenderness of the right great toe and dorsal lateral aspect of the right foot.), Increased Warmth Course - Vital Signs Last Recorded V/S: Last Vital Signs Temp 36.4 C 03/25/20 05:49 Pulse 103 H 03/25/20 05:49 Resp 16 03/25/20 05:49 BP 146/91 H 03/25/20 05:49 Pulse Ox 99 03/25/20 05:49 - Orders/Labs/Meds Orders: Active Orders 24 hr Category Date Time Status Peripheral IV Care [RC] . DIRECTED Care 03/25/20 06:03 Active CBC WITH AUTO DIFF [HEME] Stat Lab 03/25/20 06:12 Results CULTURE BLOOD [BC] Stat Lab 03/25/20 06:23 Received CULTURE BLOOD [BC] Stat Lab 03/25/20 06:33 Received Sodium Chloride 0.9% [Saline Flush] Med 03/25/20 06:03 Active 10 ml FLUSH ASDIRECTED PRN cefTRIAXone [Rocephin] 2 gm Med 03/25/20 06:15 Active Sodium Chloride 0.9% [Normal Saline] 100 ml IV Q24H Blood Culture x2 Reflex Set [OM.PC] Stat Oth 03/25/20 06:03 Ordered Peripheral IV Insertion Adult [OM.PC] Stat Oth 03/25/20 06:03 Ordered Medication Orders Ceftriaxone Sodium 2 gm/ (Sodium Chloride) 100 mls @ 200 mls/hr IV Q24H TAMEKA Last Admin: 03/25/20 06:55 Dose: 200 mls/hr Documented by: MARIPOSA Sodium Chloride (Saline Flush) 10 ml FLUSH ASDIRECTED PRN PRN Reason: Keep Vein Open Last Admin: 03/25/20 06:55 Dose: 10 ml Documented by: MARIPOSA Labs: Laboratory Tests 03/25/20 03/25/20 Range/Units 06:12 06:12 WBC 10.07 H (4.23-9.07) K/mm3 RBC 5.25 (4.63-6.08) M/mm3 Hgb 15.3 (13.7-17.5) gm/dl Hct 44.8 (40.1-51.0) % MCV 85.3 (79.0-92.2) fl MCH 29.1 (25.7-32.2) pg MCHC 34.2 (32.2-35.5) g/dl RDW Std Deviation 39.8 (35.1-43.9) fL Plt Count 265 (163-337) K/mm3 MPV 9.7 (9.4-12.3) fl Neut % (Auto) 63.7 (34.0-67.9) % Lymph % (Auto) 23.8 (21.8-53.1) % [place] % (Auto) 7.6 (5.3-12.2) % Eos % (Auto) 4.4 (0.8-7.0) Baso % (Auto) 0.2 (0.1-1.2) % Neut # (Auto) 6.41 H (1.78-5.38) K/mm3 Lymph # (Auto) 2.40 (1.32-3.57) K/mm3 [place] # (Auto) 0.77 (0.30-0.82) K/mm3 Eos # (Auto) 0.44 (0.04-0.54) K/mm3 Baso # (Auto) 0.02 (0.01-0.08) K/mm3 Sodium 138 (136-145) mEq/L Potassium 3.6 (3.5-5.1) mEq/L Chloride 99 (98-107) mEq/L Carbon Dioxide 29 (21-32) mEq/L Anion Gap 13.6 (5-15) BUN 18 (7-18) mg/dL Creatinine 0.9 (0.7-1.3) mg/dL Est Cr Clr Drug Dosing 117.97 mL/min Estimated GFR (MDRD) > 60 (>60) mL/min BUN/Creatinine Ratio 20.0 H (14-18) Glucose 436 H (74-106) mg/dL Calcium 9.0 (8.5-10.1) mg/dL Magnesium 1.9 (1.8-2.4) mg/dl Total Bilirubin 0.5 (0.2-1.0) mg/dL AST 21 (15-37) U/L ALT 30 (16-63) U/L Alkaline Phosphatase 162 H (46-116) U/L C-Reactive Protein 1.7 H* (<1.0) mg/dL Total Protein 7.0 (6.4-8.2) g/dl Albumin 3.7 (3.4-5.0) g/dl Globulin 3.3 gm/dL Albumin/Globulin Ratio 1.1 (1-2) Meds: Medications Generic Name Dose Route Start Last Admin Trade Name Freq PRN Reason Stop Dose Admin Ceftriaxone Sodium 2 gm/ 100 mls @ 200 mls/hr 03/25/20 06:15 03/25/20 06:55 Sodium Chloride IV 200 mls/hr Q24H TAMEKA Administration Sodium Chloride 10 ml 03/25/20 06:03 03/25/20 06:55 Saline Flush FLUSH 10 ml ASDIRECTED PRN Administration Keep Vein Open Discontinued Medications Generic Name Dose Route Start Last Admin Trade Name [place] PRN Reason Stop Dose Admin Doxycycline Hyclate 100 mg 03/25/20 06:25 03/25/20 06:55 Vibramycin PO 03/25/20 06:26 100 mg ONETIME ONE Administration Ibuprofen 600 mg 03/25/20 06:09 03/25/20 06:55 Motrin PO 03/25/20 06:10 600 mg ONETIME ONE Administration - Radiology Interpretation Free Text/Narrative:: 49-year-old male presents to the ED for evaluation of right great toe pain gradually worsening over the last 2-1/2 to 3 days. No injuries known. Patient is a type II diabetic controlled with insulin for the last 5 to 6 years and oral meds for 5 to 6 years prior to that. He states he has bilateral peripheral neuropathy in both lower extremities and was recently started on gabapentin but after 3 days he discontinued the medication because of the way it made him feel. He became concerned this evening that he may be developing gangrene of his toe and going to lose his toes or his foot. He therefore admits that he did vomit once at home but he believes this occurred secondary to anxiety. His face does feel flushed however nurses recorded temperature to be normal. Examination reveals that the right great toe is red warm to touch and tender to touch as is the dorsal lateral aspect of his right foot. This therefore has the beginnings of early cellulitis. 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 I have recommended applying CeraVe cream to both areas of his toes every night at bedtime probably for the rest of his life. The plan at this time will be to have some routine labs performed including a blood culture x2. I am going to give him Rocephin 2 g intravenously and doxycycline 100 mg by mouth. He will be discharged on doxycycline 100 mg twice daily for the next 14 days and Cipro 500 mg twice daily for the next 7 days to clear up staph aureus infection for MRSA infection of his right foot. - Re-Assessments/Exams Free Text/Narrative Re-Assessment/Exam: 03/25/20 06:52 White count is normal at 10.07 with 63.7% neutrophils. Hemoglobin is 15.3 with hematocrit of 44.8. Platelet count 265,000. Sodium was 138 with a potassium of 3.6 chloride 99 with a bicarb of 29. Anion gap is 13.6. BUN is 18 with a creatinine of 0.9 and a GFR greater than 60. Glucose is elevated at 436. He has yet to take his morning insulin. Calcium is 9.0 magnesium normal at 1.9. Liver function normal alk phosphatase is slightly elevated at 162 concerning for possible developing osteomyelitis in his great toe. C-reactive protein is minimally elevated at 1.7. Total protein is 7.0 albumin fraction 3.7 Departure - Departure Time of Disposition: 07:20 Disposition: Home, Self-Care 01 Condition: Fair Clinical Impression: Cellulitis of right foot, Cellulitis of great toe, right - Discharge Information *PRESCRIPTION DRUG MONITORING PROGRAM REVIEWED*: Not Applicable *COPY OF PRESCRIPTION DRUG MONITORING REPORT IN PATIENT STANISLAV: Not Applicable Prescriptions: Cefdinir [Omnicef] 300 mg PO BID #14 cap Doxycycline [Vibra-Tabs] 100 mg PO Q12HR #28 tab Referrals: Sharee Gregory, EMAIL ADMINISTRATOR [Primary Care Provider] - Forms: ED Department Discharge Additional Instructions: Evaluation in the emergency room today in regards to increasing pain in your right great toe and evidence clinically of an infection around the toenail and top and side of your right foot. There is also some weeping discharge coming from the end of the left great toenail as well with slight warmth and redness of the toe itself as well. You were therefore started on IV antibiotic Rocephin 2 g in the emergency department. You will need to fill oral antibiotics later today for doxycycline 100 mg twice daily for the next 2 weeks with the first t ablet due at suppertime tonight and Omnicef 300 mg tablet twice daily for 7 days started tonight at suppertime as well to clear up infection right great toe and foot. Suggest follow-up with your personal care physician in the next 7 days. You are going to need to be referred to podiatry to have the very thick skin on the medial aspects of both great toes pared down to prevent recurrent infection. I would suggest placing a ointment to soften the skin called Erica every night at bedtime for the rest of your life. You may use Tylenol 650 mg every 6 hours as necessary for pain relief in the right great toe. Sepsis Event Note (ED) - Evaluation Sepsis Screening Result: No Definite Risk - Focused Exam Vital Signs: Vital Signs Temp Pulse Resp BP Pulse Ox 03/25/20 05:49 36.4 C 103 H 16 146/91 H 99 - My Orders Last 24 Hours: My Active Orders 03/25/20 06:03 Peripheral IV Care [RC] . DIRECTED Sodium Chloride 0.9% [Saline Flush] 10 ml FLUSH ASDIRECTED PRN Blood Culture x2 Reflex Set [OM.PC] Stat Peripheral IV Insertion Adult [OM.PC] Stat 03/25/20 06:12 CBC WITH AUTO DIFF [HEME] Stat 03/25/20 06:15 cefTRIAXone [Rocephin] 2 gm Sodium Chloride 0.9% [Normal Saline] 100 ml IV Q24H 03/25/20 06:23 CULTURE BLOOD [BC] Stat 03/25/20 06:33 CULTURE BLOOD [BC] Stat - Assessment/Plan Last 24 Hours: My Active Orders 03/25/20 06:03 Peripheral IV Care [RC] . DIRECTED Sodium Chloride 0.9% [Saline Flush] 10 ml FLUSH ASDIRECTED PRN Blood Culture x2 Reflex Set [OM.PC] Stat Peripheral IV Insertion Adult [OM.PC] Stat 03/25/20 06:12 CBC WITH AUTO DIFF [HEME] Stat 03/25/20 06:15 cefTRIAXone [Rocephin] 2 gm Sodium Chloride 0.9% [Normal Saline] 100 ml IV Q24H 03/25/20 06:23 CULTURE BLOOD [BC] Stat 03/25/20 06:33 CULTURE BLOOD [BC] Stat
[2020-03-25] MEDS ORDERED: Sodium Chloride 0.9% 10 ML Syringe FLUSH PRN (06:03)
[2020-03-25] MEDS ORDERED: Ibuprofen 600 MG Tab PO ONE (06:09)
[2020-03-25] MEDS ORDERED: cefTRIAXone 2 GM in Sodium Chloride 0.9% 100 ML IV SCH (06:15)
[2020-03-25] MEDS ORDERED: Doxycycline 100 MG Cap PO ONE (06:25)
== END 2020-03-25 07:31 | disposition home or self-care (01) ==
LOC: JD.ED 05:39
DX: L03.031 Cellulitis of right toe (principal); E66.9 Obesity, unspecified; E11.9 Type 2 diabetes mellitus without complications; I10 Essential (primary) hypertension; E78.00 Pure hypercholesterolemia, unspecified; Z68.25 Body mass index [BMI] 25.0-25.9, adult; Z79.4 Long term (current) use of insulin; Z79.899 Other long term (current) drug therapy
CPT/HCPCS: 36415; 80053; 83735; 85025; 86140; 87040; 96365; 99283; A9270; J0696; J7050; 99284

== ENCOUNTER 2020-04-24 22:02 | Emergency (ER) | payer MEDICAID ==
[2020-04-24 22:18] VITALS: BP 158/105; PULSE 99
[2020-04-24] MEDS ORDERED: Sodium Chloride 0.9% 1,000 ML IV ONE (22:44)
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
[2020-04-25] MEDS ORDERED: Magnesium Sulfate/Water 2 GM/50 ML BAG IV ONE (00:17)
[2020-04-25] MEDS ORDERED: Sodium Chloride 0.9% 1,000 ML IV ONE (00:22)
== END 2020-04-25 00:51 | disposition home or self-care (01) ==
LOC: JD.ED 22:02
DX: E11.65 Type 2 diabetes mellitus with hyperglycemia (principal); E11.40 Type 2 diabetes mellitus with diabetic neuropathy, unspecified; E83.42 Hypomagnesemia; R74.02 Elevation of levels of lactic acid dehydrogenase [LDH]; E78.00 Pure hypercholesterolemia, unspecified; I10 Essential (primary) hypertension; E66.9 Obesity, unspecified; Z68.26 Body mass index [BMI] 26.0-26.9, adult; Z79.4 Long term (current) use of insulin; Z79.899 Other long term (current) drug therapy; Z72.0 Tobacco use
CPT/HCPCS: 36415; 36600; 80053; 82009; 82803; 82962; 83605; 83735; 85007; 85027; 86140; 99284; J1815; J7030; 99285

== ENCOUNTER 2020-11-10 23:29 | Emergency (ER) | payer MEDICAID ==
[2020-11-10 23:46] VITALS: BP 169/109; PULSE 113
[2020-11-11] MEDS ORDERED: Cephalexin 500 MG Cap PO ONE (00:11)
--- NOTE | 2020-11-11 00:11 | EDM.PDOC ---
ED HPI GENERAL MEDICAL PROBLEM - General Chief Complaint: Lower Extremity Injury/Pain Stated Complaint: RIGHT FOOT SWOLLEN Time Seen by Provider: 11/10/20 23:58 - History of Present Illness INITIAL COMMENTS - FREE TEXT/NARRATIVE: Patient arrived ED by private vehicle Complains of redness to the right second toe This was noticed last night Endorses 3-month history of numbness through the distal half of both feet States this makes it painful to walk Tip of the right second toe has been swollen for a few weeks, but was not red until last night Denies fever, nausea, vomiting He has diabetes, states he has been diagnosed with neuropathy Was prescribed gabapentin but could not tolerate it Right Toe-Middle Pain Score (Numeric/FACES): 6 - Related Data Allergies Allergy/AdvReac Type Severity Reaction Status Date / Time No Known Allergies Allergy Verified 11/10/20 23:46 Home Meds: Home Meds Escitalopram [Lexapro] 20 mg PO DAILY 10/30/15 [History] Insulin Glargine,Hum.Rec.Anlog [Toujeo Solostar] 50 unit INJECT BID 09/22/17 [History] atorvaSTATin Calcium [Atorvastatin Calcium] 20 mg PO DAILY 09/24/18 [History] Gabapentin [Neurontin] 300 mg PO TID #90 cap 02/26/20 [Rx] metFORMIN [Glucophage XR] 500 mg PO BID 04/24/20 [History] cephALEXin [Cephalexin] 500 mg PO Q12H #16 capsule 11/11/20 [Rx] Past Medical History HEENT History: Reports: Other (See Below) Other HEENT History: deviated nasal spetum. Cardiovascular History: Reports: High Cholesterol, Hypertension Other Cardiovascular History: not on medication as his insurance won't pay for it Respiratory History: Reports: None Gastrointestinal History: Reports: Other (See Below) Other Gastrointestinal History: chronic nausea. Genitourinary History: Reports: BPH Musculoskeletal History: Reports: Fracture Neurological History: Reports: None Psychiatric History: Reports: Anxiety, Depression Endocrine/Metabolic History: Reports: Diabetes, Type II, Obesity/BMI 30+ Hematologic History: Reports: None Immunologic History: Reports: None Oncologic (Cancer) History: Reports: None Dermatologic History: Reports: None - Infectious Disease History Infectious Disease History: Reports: Chicken Pox - Past Surgical History Head Surgeries/Procedures: Reports: None HEENT Surgical History: Reports: Oral Surgery Other HEENT Surgeries/Procedures: wisdom teeth removed. Social & Family History - Family History Family Medical History: No Pertinent Family History - Tobacco Use Tobacco Use Status *Q: Current Every Day Tobacco User Years of Tobacco use: 30 Packs/Tins Daily: 1 - Caffeine Use Caffeine Use: Reports: Coffee - Recreational Drug Use Recreational Drug Use: No - Living Situation & Occupation Living situation: Reports: Single, with Significant Other (Fiance), with Family (1 daughter) Occupation: Unemployed Review of Systems - Review of Systems Review Of Systems: See Below Constitutional: Denies: Fever Musculoskeletal: Reports: Foot Pain Skin: Reports: Erythema ED EXAM, GENERAL - Physical Exam Exam: See Below Free Text/Narrative:: Constitutional - awake; alert; no acute distress Head - no facial swelling or weakness Eyes - extra ocular motion intact; conjunctiva normal ENT - no nasal deformity; no epistaxis; normal phonation Neck - no swelling Respiratory - normal respiratory effort Cardiovascular - regular rhythm; normal rate - Localized swelling at tip of second great toe; mild-moderate erythema dorsal aspect of distal phalanx, proximal to nail - grossly normal strength and motion; no swelling or deformity Skin - warm; dry Neurologic - normal speech; no weakness; gait intact Psychiatric -anxious mood; normal affect; memory and attention normal Course - Vital Signs Text/Narrative:: Symptoms and examination were discussed Acute erythema was suggestive of cellulitis Presumptive antibiotic therapy was initiated with cephalexin Patient was felt to be stable for outpatient follow-up Return precautions were provided Last Recorded V/S: Last Vital Signs Temp 35.9 C L 11/10/20 23:42 Pulse 113 H 11/10/20 23:42 Resp 20 11/10/20 23:42 BP 169/109 H 11/10/20 23:42 Pulse Ox 100 11/10/20 23:42 - Orders/Labs/Meds Meds: Medications Discontinued Medications Generic Name Dose Route Start Last Admin Trade Name Freq PRN Reason Stop Dose Admin Cephalexin 500 mg 11/11/20 00:11 11/11/20 00:17 Cephalexin 500 Mg Cap PO 11/11/20 00:12 500 mg ONETIME ONE Administration Departure - Departure Time of Disposition: 00:22 Disposition: Home, Self-Care 01 Clinical Impression: Cellulitis of toe of right foot - Discharge Information *PRESCRIPTION DRUG MONITORING PROGRAM REVIEWED*: No *COPY OF PRESCRIPTION DRUG MONITORING REPORT IN PATIENT STANISLAV: Not Applicable Prescriptions: cephALEXin [Cephalexin] 500 mg PO Q12H #16 capsule Instructions: Cellulitis, Adult, [id number] Referrals: Sharee Gregory, [employer]PER[employer]OR [Primary Care Provider] - Forms: ED Department Discharge Additional Instructions: Return if condition worsens May resume general activity and regular diet as tolerated Continue usual medications Take CEPHALEXIN antibiotic as prescribed, until completed Follow-up with primary care and/or podiatry provider is recommended 5 to 7 days
== END 2020-11-11 01:15 | disposition home or self-care (01) ==
LOC: JD.ED 23:29
DX: L03.031 Cellulitis of right toe (principal); E78.00 Pure hypercholesterolemia, unspecified; I10 Essential (primary) hypertension; E11.9 Type 2 diabetes mellitus without complications; E66.9 Obesity, unspecified; Z68.30 Body mass index [BMI] 30.0-30.9, adult; Z79.4 Long term (current) use of insulin; Z79.899 Other long term (current) drug therapy
CPT/HCPCS: 99283; A9270

== ENCOUNTER 2021-04-19 11:57 | Emergency (ER) | payer BC, MEDICAID ==
[2021-04-19 12:12] VITALS: BP 150/88; PULSE 86
[2021-04-19] MEDS ORDERED: Sodium Chloride 0.9% 10 ML Syringe FLUSH PRN (12:20)
[2021-04-19] MEDS ORDERED: Sodium Chloride 0.9% 1,000 ML IV SCH (12:21)
[2021-04-19] MEDS ORDERED: Insulin Regular, Human 100 Units/ML 3 ML Vial IV ONE ×2 (12:22→15:34)
[2021-04-19 13:26] LABS: HEMOGLOBIN A1C 12.7 %
[2021-04-19] MEDS ORDERED: Lactated Ringers 1,000 ML IV ONE (13:32)
== END 2021-04-19 17:45 | disposition other institution (70) ==
LOC: JD.ED 11:57
DX: E11.65 Type 2 diabetes mellitus with hyperglycemia (principal); E78.00 Pure hypercholesterolemia, unspecified; I10 Essential (primary) hypertension; E11.9 Type 2 diabetes mellitus without complications; Z79.4 Long term (current) use of insulin; Z79.899 Other long term (current) drug therapy
CPT/HCPCS: 36415; 80053; 81001; 82009; 82800; 82947; 83036; 83930; 85025; 99284; J1815; J7030; J7120

== ENCOUNTER 2021-04-21 12:57 | Emergency (ER) | payer BC ==
[2021-04-21 13:15] VITALS: BP 153/104; PULSE 85
[2021-04-21] MEDS ORDERED: metFORMIN 500 MG Tab PO ONE (13:30)
== END 2021-04-21 13:56 | disposition home or self-care (01) ==
LOC: JD.ED 12:57
DX: E11.65 Type 2 diabetes mellitus with hyperglycemia (principal); E78.00 Pure hypercholesterolemia, unspecified; I10 Essential (primary) hypertension; Z87.891 Personal history of nicotine dependence; Z79.4 Long term (current) use of insulin; Z79.899 Other long term (current) drug therapy
CPT/HCPCS: 82947; 99284; A9270

== ENCOUNTER 2021-10-15 11:56 | Emergency (ER) | payer BC ==
[2021-10-15 12:49] VITALS: BP 153/118; PULSE 113
== END 2021-10-15 13:28 | disposition home or self-care (01) ==
LOC: JD.ED 11:56
DX: E11.42 Type 2 diabetes mellitus with diabetic polyneuropathy (principal); E78.00 Pure hypercholesterolemia, unspecified; I10 Essential (primary) hypertension; Z79.4 Long term (current) use of insulin; Z79.899 Other long term (current) drug therapy; Z86.16 Personal history of COVID-19
CPT/HCPCS: 99283; 99284

== ENCOUNTER 2022-10-16 13:05 | Emergency (ER) | payer BC, MEDICAID ==
[2022-10-16 14:03] LABS: BASOPHILS ABSOLUTE AUTO 0.02 K/mm3 (0.01-0.08); BASOPHILS PERCENT AUTO 0.2 % (0.1-1.2); EOSINOPHILS ABSOLUTE AUTO 0.24 K/mm3 (0.04-0.54); EOSINOPHILS PERCENT AUTO 2.6 (0.8-7.0); HEMOGLOBIN 13.7 gm/dl (13.7-17.5); IMMATURE GRAN ABSOLUTE AUTO 0.02 K/mm3 (0.00-0.10); IMMATURE GRAN PERCENT AUTO 0.2 % (<=1.0); LYMPHOCYTES ABSOLUTE AUTO 2.73 K/mm3 (1.32-3.57); LYMPHOCYTES PERCENT AUTO 29.4 % (21.8-53.1); MEAN CORPUSCULAR HEMOGLOBIN 29.8 pg (25.7-32.2); MEAN CORPUSCULAR HGB CONC 34.3 g/dl (32.2-35.5); MEAN CORPUSCULAR VOLUME 87.1 fl (79.0-92.2); MEAN PLATELET VOLUME 9.4 fl (9.4-12.3); MONOCYTES ABSOLUTE AUTO 0.76 K/mm3 (0.30-0.82); MONOCYTES PERCENT AUTO 8.2 % (5.3-12.2); NEUTROPHILS PERCENT AUTO 59.4 % (34.0-67.9); PLATELET COUNT,PLT 259 K/mm3 (163-337); RED BLOOD CELL COUNT 4.59 M/mm3 (4.63-6.08); WHITE BLOOD CELL COUNT,WBC 9.27 K/mm3 (4.23-9.07)
[2022-10-16 14:26] LABS: BARBITURATE SCREEN,URINE NEGATIVE (CUTOFF=200); BENZODIAZEPINES SCREEN,URINE NEGATIVE (CUTOFF=150); BUPRENORPHINE SCREEN,URINE NEGATIVE (CUTOFF=10); METHADONE SCREEN, URINE NEGATIVE (CUT0FF=200); METHAMPHETAMINES SCREEN, URINE PRESUMPTIVE POSITIVE (CUTOFF=500); OXYCODONE SCREEN,URINE NEGATIVE (CUT0FF=100); PROPOXYPHENE SCREEN,URINE NEGATIVE (CUTOFF=300); THC SCREEN,URINE 20 NG/ML NEGATIVE (CUTOFF=50)
[2022-10-16 14:33] LABS: AMPHETAMINES SCREEN, URINE PRESUMPTIVE POSITIVE (CUTOFF=500)
[2022-10-16 14:37] LABS: ALBUMIN 3.4 g/dl (3.4-5.0); BILIRUBIN TOTAL 0.5 mg/dL (0.2-1.0); BUN/CREATININE RATIO 18.9 (14-18); CALCIUM 9.2 mg/dL (8.5-10.1); CREATININE 0.9 mg/dL (0.7-1.3); EST CRCL DRUG DOSING (CG) 110.19 mL/min; PROTEIN TOTAL,TP 6.7 g/dl (6.4-8.2); TSH 1.266 uIU/mL (0.358-3.74)
[2022-10-16] MEDS ORDERED: Nicotine 21 MG/24 Hr Patch TRDERM ONE (14:49)
[2022-10-16] MEDS ORDERED: Insulin Lispro 100 Unit/ML 3 ML KwikPen SUBCUT ONE (15:43)
[2022-10-16 16:43] LABS: CORONAVIRUS COVID-19 NAA NEGATIVE (NEGATIVE); INFLUENZA A NAA NEGATIVE (NEGATIVE); RESPIRATORY SYNCYTIAL VIR NAA NEGATIVE (NEGATIVE)
[2022-10-16] MEDS: Insulin Lispro 100 Unit/ML 3 ML KwikPen SUBCUT SCH ×2 (17:30→21:30)
[2022-10-16] MEDS ORDERED: Acetaminophen 325 MG Tab PO ONE (21:10)
[2022-10-17 01:39] VITALS: BP 133/91; PULSE 80
== END 2022-10-17 02:05 ==
LOC: JD.ED 13:05
DX: T50.902A Poisoning by unspecified drugs, medicaments and biological substances, intentional self-harm, initial encounter (principal); F32.A Depression, unspecified; F17.210 Nicotine dependence, cigarettes, uncomplicated; E11.9 Type 2 diabetes mellitus without complications; E78.00 Pure hypercholesterolemia, unspecified; I10 Essential (primary) hypertension; Z79.4 Long term (current) use of insulin; Z20.822 Contact with and (suspected) exposure to COVID-19; Z86.16 Personal history of COVID-19
CPT/HCPCS: 0241U; 36415; 80053; 80143; 80179; 80306; 80307; 82947; 84443; 85025; 93005; 99285; A9270; J1815; 93010

== ENCOUNTER 2023-05-06 11:28 | Emergency (ER) | payer BC, MEDICAID ==
[2023-05-06 11:51] VITALS: BP 123/93; PULSE 92
[2023-05-06 12:15] LABS: BASOPHILS ABSOLUTE AUTO 0.1 K/mm3 (0.0-0.2); BASOPHILS PERCENT AUTO 0.6 % (0.0-1.0); EOSINOPHILS ABSOLUTE AUTO 0.2 K/mm3 (0.0-0.4); EOSINOPHILS PERCENT AUTO 1.9 % (0.0-6.0); HEMATOCRIT 45.1 % (42.0-52.0); HEMOGLOBIN 15.5 gm/dl (14.0-18.0); IMMATURE GRAN ABSOLUTE AUTO 0.01 K/mm3 (0.00-0.05); IMMATURE GRAN PERCENT AUTO 0.1 % (0.0-0.4); LYMPHOCYTES ABSOLUTE AUTO 2.2 K/mm3 (1.0-4.8); MEAN CORPUSCULAR HEMOGLOBIN 29.6 pg (28.0-32.0); MEAN CORPUSCULAR HGB CONC 34.4 g/dl (32.0-36.0); MEAN CORPUSCULAR VOLUME 86.2 fl (83.0-99.0); MEAN PLATELET VOLUME 9.1 fl (9.4-12.4); MONOCYTES ABSOLUTE AUTO 0.6 K/mm3 (0.0-0.8); MONOCYTES PERCENT AUTO 6.9 % (0.0-8.0); NEUTROPHILS PERCENT AUTO 66.5 % (41.0-71.0); PLATELET COUNT,PLT 280 K/mm3 (150-400); RED BLOOD CELL COUNT 5.23 M/mm3 (4.52-5.90); WHITE BLOOD CELL COUNT,WBC 8.95 K/mm3 (3.9-11.3)
[2023-05-06 12:36] LABS: CORONAVIRUS COVID-19 NAA NEGATIVE (NEGATIVE); INFLUENZA A NAA NEGATIVE (NEGATIVE)
[2023-05-06 12:42] LABS: ALBUMIN 3.6 g/dl (3.4-5.0); ANION GAP 14.6 (5-15); BILIRUBIN TOTAL 0.6 mg/dL (0.2-1.0); BUN/CREATININE RATIO 18.2 (14-18); C-REACTIVE PROTEIN 0.08 mg/dL (<0.30); CREATININE 1.1 mg/dL (0.7-1.3); EST CRCL DRUG DOSING (CG) 89.77 mL/min; POTASSIUM,K 4.6 mEq/L (3.5-5.1); PROTEIN TOTAL,TP 7.2 g/dl (6.4-8.2)
[2023-05-06 13:12] LABS: TSH 1.267 uIU/mL (0.358-3.74)
[2023-05-06] MEDS ORDERED: Insulin Lispro 100 Unit/ML 3 ML KwikPen SUBCUT ONE (13:43)
== END 2023-05-06 14:00 | disposition left against medical advice (07) ==
LOC: JD.ED 11:28
DX: E11.65 Type 2 diabetes mellitus with hyperglycemia (principal); I10 Essential (primary) hypertension; E78.00 Pure hypercholesterolemia, unspecified; Z86.16 Personal history of COVID-19; Z79.4 Long term (current) use of insulin; Z79.899 Other long term (current) drug therapy
CPT/HCPCS: 0240U; 36415; 80053; 84443; 85025; 86140; 93005; 99285